=== PATIENT | female | born 1960 | race Hispanic/Latino ===

== ENCOUNTER 2019-07-30 21:25 | Inpatient (IN) | payer BC ==
[~2019-07-30] VITALS: Ht 149.9 cm; Wt 74.8 kg
--- OUTSIDE RECORDS SUMMARY | 2019-07-30 21:29 | XMS REPORT | Summary of Care ---
Author Author [facility] Organization [facility] Address Unknown Phone Unavailable Encounter CAROLINA Rowe(RAVIN) [id number] Date(s): 04/26/17 - 04/26/17 [facility] [address] [place] [address]- Attending Physician: Kavita Gilmore MD Referring Physician: Kavita Gilmore MD Vital Signs No data available for this section Problem List Condition Effective Dates Status Health Status Informan t Body mass index 30+ 02/28/14 Active - obesity1 Hyperlipidemia(Confi Active rmed) Multiple joint 04/21/13 Active pain(Confirmed)2 Osteopenia(Confirmed Active ) Prediabetes(Confirme Active d) Sleep Active apnea(Confirmed) Subjective visual 04/21/13 - 12/13/16 Resolved disturbance3 Urinary 04/21/13 Active incontinence(Confirm ed)4 Vitamin D 02/28/14 Active deficiency5, 6, 7 1Data migrated from [employer] on 07/16/14. 2Data migrated from [employer] on 07/16/14. 3Data migrated from [employer] on 07/16/14. 4Data migrated from [employer] on 07/16/14. 5Data migrated from [employer] on 08/24/14. 6Data migrated from [employer] on 07/19/14. 7Data migrated from [employer] on 07/16/14. Allergies, Adverse Reactions, Alerts Substance Reaction Severity Status NKDA Active Medications No data available for this section Results No data available for this section Immunizations Given and Recorded Vaccine Date Status Refusal Reason influenza virus vaccine, inactivated1 10/29/16 Given influenza virus vaccine, inactivated 11/14/14 G iven influenza virus vaccine, inactivated2 12/25/12 Given Hx influenza vaccine-unspecified3 12/20/11 Give n 1Result Comment: Patient waited in room for 10 mins no side effect. 2Result Comment: fluzone (>3 yrs.) [[id number]]. Migrated from OBS ; Data migrated from [employer] on 03/21/2015. 3Result Comment: historical. Migrated from OBS ; Data migrated from [employer] on 03/21/2015. Procedures Procedure Date Related Diagnosis Body Site Status Bone density scan1 03/27/16 Completed Mammogram 03/27/16 Completed Cardiovascular stress test using treadmill2 01/2015 Completed Echocardiography3 01/09/15 Completed Colonoscopy4 01/2012 Completed Endoscopy5 01/2012 Completed section6 Completed 1Previous dexa: Normal to new dexa: osteopenia left femoral neck 2Per patient it was normal. Dr Mireles 3Dr . Lindsay mild concentricular hypertrophy 4Next 5 years 5Gastritis 6x2 Social History Social History Type Response Alcohol Current, Type Beer. Freque ncy: 1-2 times per month. Smoking Status Current some day smoker; Li ves with someone who smokes; Cigarette Smoking Last 365 Days Yes; Reg Smoking Cessatio n Counseling No entered on: 07/29/17 Assessment and Plan No data available for this section
--- OUTSIDE RECORDS SUMMARY | 2019-07-30 21:29 | XMS REPORT | Summary of Care ---
Author Author [facility] Organization [facility] Address Unknown Phone Unavailable Encounter HQ Kristinr_sha(FIN) [id number] Date(s): 02/28/17 - 02/28/17 [facility] [address], [address] [place] [address]- [phone] Attending Physician: Kavita Gilmore MD Vital Signs No data available for this section Problem List Condition Effective Dates Status Health Status Informan t Body mass index 30+ 02/28/14 Active - obesity1 Hyperlipidemia(Confi Active rmed) Multiple joint pain2 04/21/13 Active Osteopenia(Confirmed Active ) Prediabetes(Confirme Active d) Sleep [...] side effect. 2Result Comment: fluzone (>3 yrs.) [[id number]]. Migrated from OBS ; Data migrated from [employer] on 03/21/2015. 3Result Comment: historical. Migrated from OBS ; Data migrated from [employer] on 03/21/2015. Procedures Procedure Date Related Diagnosis [...] Smoking Cessatio n Counseling No entered on: 12/13/16 Assessment and Plan No data available for this section
--- OUTSIDE RECORDS SUMMARY | 2019-07-30 21:29 | XMS REPORT | Summary of Care ---
Author Author [facility] Organization [facility] Address Unknown Phone Unavailable Encounter CAROLINA Rowe(RAVIN) [id number] Date(s): 04/07/18 - 04/07/18 [facility] [address] [place] [address]- Encounter Diagnosis Encounter for screening mammogram for malignant neoplasm of breast (Final) - Discharge Disposition: Home or Self Care Attending Physician: Kavita Gilmore MD Referring Physician: Kavita Gilmore MD Vital Signs No data available for this section Problem List Condition Effective Dates Status Health Status Informan t Body mass index 30+ 02/28/14 Active - obesity1 Low vitamin D Active level(Confirmed) Mixed Active hyperlipidemia(Confi rmed) Multiple joint 04/21/13 Active pain(Confirmed)2 Osteopenia(Confirmed Active ) Prediabetes(Confirme Active d) Sleep Active apnea(Confirmed) Subjective visual 04/21/13 - 12/13/16 Resolved disturbance3 Urinary 04/21/13 Active incontinence(Confirm ed)4 1Data migrated from [employer] on 07/16/14. 2Data migrated from [employer] on 07/16/14. 3Data migrated from [employer] on 07/16/14. 4Data migrated from [employer] on 07/16/14. Allergies, Adverse Reactions, Alerts Substance Reaction Severity Status NKDA Active Medications No data available for this section Results No data available for this section Immunizations Given and Recorded Vaccine Date Status Refusal Reason diphtheria/pertussis, acel/tetanus adult1 12/01/17 Given influenza virus vaccine, inactivated2 12/01/17 Given influenza virus vaccine, inactivated3 10/29/16 Given influenza virus vaccine, inactivated 11/14/14 G iven influenza virus vaccine, inactivated4 12/25/12 Given Hx influenza vaccine-unspecified5 12/20/11 Give n 1Result Comment: Patient waited in room ten mins no allergic reaction. 2Result Comment: Patient waited in room ten mins no allergic reaction. 3Result Comment: Patient waited in room for 10 mins no side effect. 4Result Comment: fluzone (>3 yrs.) [[id number]]. Migrated from OBS ; Data migrated from [employer] on 03/21/2015. 5Result Comment: historical. Migrated from OBS ; Data migrated from [employer] on 03/21/2015. Procedures Procedure Date Related Diagnosis Body Site Status Mammogram1 04/07/18 Completed Bone density scan2 03/27/16 Completed Cardiovascular stress test using treadmill3 01/2015 Completed Echocardiography4 01/09/15 Completed Colonoscopy5 01/2012 Completed Endoscopy6 01/2012 Completed section7 Completed 1:There is no mammographic evidence of malignancy. A 1 year screening mammogram is recommended.(04/08/2019) 2Previous dexa: Normal to new dexa: osteopenia left femoral neck 3Per patient it was normal. Dr Mireles 4Dr . Lindsay mild concentricular hypertrophy 5Next 5 years 6Gastritis 7x2 Social History Social History Type Response Alcohol Current, Type Beer. Freque ncy: 1-2 times per month. Smoking Status Current some day smoker; Li ves with someone who smokes; Cigarette Smoking Last 365 Days Yes; Reg Smoking Cessatio n Counseling No entered on: 04/08/18 Assessment and Plan No data available for this section
--- OUTSIDE RECORDS SUMMARY | 2019-07-30 21:29 | XMS REPORT | Summary of Care ---
Author Author [facility] Organization [facility] Address Unknown Phone Unavailable Encounter HQ Jae(FIN) [id number] Date(s): 05/13/19 - 05/14/19 [facility] [address] [place] [address]- [phone] Vital Signs No data available for this section Problem List Condition Effective Dates Status Health Status Informan t Body mass index 30+ 02/28/14 Active - obesity(Confirmed)1 Low vitamin D Active level(Confirmed) Mixed Active [...] [employer] on 07/16/14. Allergies, Adverse Reactions, Alerts No Known Medication Allergies Medications No data available for this section [...] side effect. 4Result Comment: fluzone (>3 yrs.) [[id number]]. Migrated from OBS ; Data migrated from [email or web address] on 03/21/2015. 5Result Comment: historical. Migrated from OBS ; Data migrated from [email or web address] on 03/21/2015. Procedures Procedure Date Related Diagnosis [...] Smoking Cessatio n Counseling No entered on: 08/05/18 Assessment and Plan No data available for this section
--- OUTSIDE RECORDS SUMMARY | 2019-07-30 21:29 | XMS REPORT | Summary of Care ---
Author Author [facility] Organization [facility] Address Unknown Phone Unavailable Encounter HQ Kristinr_sha(FIN) [id number] Date(s): 04/09/17 - 04/10/17 [facility] [address], [address] [place] [address]- [phone] Vital Signs No data available for this [...] Substance Reaction Severity Status NKDA Active Medications acetic acid otic 2% solution 5 drp, BOTH EARS, TID, X 7 day, # 15 ml, 0 Refill(s), Pharmacy: [id number] Start Date: 04/09/17 Stop Date: 04/16/17 Status: Completed nitrofurantoin macrocrystals 100 mg oral capsule (Macrodantin) 100 mg = 1 cap, PO, QID, X 7 day, # 28 cap, 0 Refill(s), Pharmacy: [id number] Start Date: 04/10/17 Stop Date: 04/17/17 Status: Completed Results No data available for this section Immunizations Given and Recorded Vaccine Date Status Refusal Reason influenza virus vaccine, inactivated1 10/29/16 Given influenza virus vaccine, inactivated 11/14/14 G iven influenza virus vaccine, inactivated2 12/25/12 Given Hx influenza vaccine-unspecified3 12/20/11 Give n 1Result Comment: Patient waited in room for 10 mins no side effect. 2Result Comment: fluzone (>3 yrs.) [[id number]]. Migrated from OBS ; Data migrated from [email or web address] on 03/21/2015. 3Result Comment: historical. Migrated from OBS ; Data migrated from [email or web address] on 03/21/2015. Procedures Procedure Date Related Diagnosis [...] Smoking Cessatio n Counseling No entered on: 03/31/17 Assessment and Plan No data available for this section
--- OUTSIDE RECORDS SUMMARY | 2019-07-30 21:29 | XMS REPORT | Summary of Care ---
Author Author [facility] Organization [facility] Address Unknown Phone Unavailable Encounter HQ Jae(RAVIN) [id number] Date(s): 07/29/17 - 07/29/17 [facility] [address], [address] [place] [address]- [phone] Discharge Disposition: Home or Self Care Attending Physician: Kavita Gilmore MD Vital Signs Most recent to 1 oldest [Reference Range]: Height 149.86 cm (07/29/17 9:34 AM) Temperature Oral 98.7 DegF [96.4-99.1 DegF] (07/29/17 9:34 AM) Blood Pressure 118/86 mmHg [90-140/60-90 mmHg] (07/29/17 9:34 AM) Respiratory Rate 16 BRMIN [14-20 BRMIN] (07/29/17 9:34 AM) Peripheral Pulse 76 bpm Rate [60-100 bpm] (07/29/17 9:34 AM) Weight 68.636 kg (07/29/17 9:34 AM) Body Mass Index 30.56 m2 (07/29/17 9:34 AM) Problem List Condition Effective Dates Status Health [...] Substance Reaction Severity Status NKDA Active Medications atorvastatin 10 mg oral tablet 10 mg = 1 tab, PO, Bedtime, # 90 tab, 1 Refill(s), Pharmacy: [id number] Start Date: 07/30/17 Status: Ordered Results No data available for this section Immunizations Given and Recorded Vaccine Date Status Refusal Reason influenza virus vaccine, inactivated1 10/29/16 Given influenza virus vaccine, inactivated 11/14/14 G iven influenza virus vaccine, inactivated2 12/25/12 Given Hx influenza vaccine-unspecified3 12/20/11 Give n 1Result Comment: Patient waited in room for 10 mins no side effect. 2Result Comment: fluzone (>3 yrs.) [[id number]]. Migrated from OBS ; Data migrated from [employer] on 03/21/2015. 3Result Comment: historical. Migrated from OBS ; Data migrated from [employer] on 03/21/2015. Procedures Procedure Date Related Diagnosis [...]
--- OUTSIDE RECORDS SUMMARY | 2019-07-30 21:29 | XMS REPORT | Summary of Care ---
Author Author [facility] Organization [facility] Address Unknown Phone Unavailable Encounter HQ Jae(FIN) [id number] Date(s): 03/24/18 - 03/24/18 [facility] [address], [address] [place] [address]- [phone] Discharge Disposition: Home or Self Care Attending Physician: Kavita Gilmore MD Vital Signs Most recent to 1 oldest [Reference Range]: Height 152.4 cm (03/24/18 9:28 AM) Temperature Oral 97.6 DegF [96.4-99.1 DegF] (03/24/18 9:28 AM) Blood Pressure 138/80 mmHg [90-140/60-90 mmHg] (03/24/18 9:28 AM) Respiratory Rate 16 BRMIN [14-20 BRMIN] (03/24/18 9:28 AM) Peripheral Pulse 71 bpm Rate [60-100 bpm] (03/24/18 9:28 AM) Weight 70.682 kg (03/24/18 9:28 AM) Body Mass Index 30.43 m2 (03/24/18 9:28 AM) Problem List Condition Effective Dates Status [...] Substance Reaction Severity Status NKDA Active Medications ciprofloxacin 500 mg oral tablet 500 mg = 1 tab, PO, Q12H, X 7 day, # 14 tab, 0 Refill(s), Pharmacy: [id number] Start Date: 03/24/18 Stop Date: 03/31/18 Status: Ordered Results No data available for [...] side effect. 4Result Comment: fluzone (>3 yrs.) [[id number]]. Migrated from OBS ; Data migrated from [employer] on 03/21/2015. 5Result Comment: historical. Migrated from OBS ; Data migrated from [employer] on 03/21/2015. Procedures Procedure Date Related Diagnosis [...] Smoking Cessatio n Counseling No entered on: 03/24/18 Assessment and Plan No data available for this section
--- OUTSIDE RECORDS SUMMARY | 2019-07-30 21:29 | XMS REPORT | Continuity of Care Document ---
Author Author [facility] Organization [facility] Address Unknown Phone Unavailable Care Team Providers Care Party Director Name Role Phone Goodmail Systems Information JoKno Unavailable Un available Problems Problem Status Onset Date Classification Date Reported Comments Source MAMMO SCREENING MAGNUS Active 03/30/2018 [facility] SCREENING MAMMO Active 04/03/2017 [facility] DX: Z12.39=ENCOUNTER FOR OTHER SCREENING Active 02/21/2016 [facility] FIRST NIGHT-[id number] Active 04/26/2015 [facility] Discharge Diagnosis: Calculus of kidney with calculus of ureter 11/29/2014 12/03/2014 [facility] FLANK PAIN /OTHER Active 11/29/2014 [facility] E78.0 Active 11/23/2014 [facility] SCREENING Active 09/16/2014 [facility] Body mass index 30+ - obesity (finding) Active 02/28/2014 Problem 05/26/2019 Data migrated from [employer] on 07/16/14. [facility] Vitamin D deficiency (disorder) Active 02/28/2014 Problem 08/02/2017 Data migrated from [employer] on . Data migrated from [employer] on 07/19/14. Data migrated from [employer] on 07/16/14. [facility] Neck pain (finding) Resolved 02/08/2014 Problem 03/30/2016 Data migrated from [employer] on 07/16. [facility] Influenza (disorder) Resolved 01/06/2014 Problem 03/30/2016 Data migrated from [employer] on 09/03. [facility] Viral disease (disorder) Resol ree 01/06/2014 Problem 03/30/2016 Data migrated from [employer] on 09/03. [facility] Urinary tract infectious disease (disorder) Resolved 11/01/2013 Problem 03/30/2016 Data migrated from [employer] on 09/03/14. [facility] Otalgia (disorder) Resolved 08/12/2013 Problem 03/30/2016 Data migrated from [employer] on 09/03. Data migrated from [employer] on 08/24/14. Data migrated from [employer] on 07/19/14. [facility] Otitis externa (disorder) Reso lved 07/14/2013 Problem 03/30/2016 Data migrated from [employer] on 09/03. Data migrated from [employer] on 09/03/14. [facility] PSOTMENOPOSAL Active 04/22/2013 [facility] Multiple joint pain (finding) Active 04/21/2013 Problem 05/26/2019 Data migrated from [employer] on 07/16. [facility] Subjective visual disturbance (disorder) Resolved 04/21/2013 Problem 05/26/2019 Data migrated from [employer] on 07/16/14. [facility] Urinary incontinence (finding) Active 04/21/2013 Problem 05/26/2019 Data migrated from [employer] on 07/16. [facility] Acute bronchitis (disorder) Re solved 01/08/2013 Problem 03/30/2016 Data migrated from [employer] on 09/03. [facility] Hypercholesterolemia (disorder) Active 12/25/2012 Problem 03/30/2016 Data migrated from [employer] on . Data migrated from [employer] on 07/19/14. [facility] Impaired fasting glycaemia (disorder) Resolved 12/25/2012 Problem 03/30/2016 Data migrated from [employer] on 08/24/14. Data migrated from [employer] on 07/16/14. [facility] Impaired glucose tolerance (disorder) Active 12/25/2012 Problem 03/30/2016 Data migrated from [employer] on . [facility] Upper respiratory infection (disorder) Resolved 12/25/2012 Problem 03/30/2016 Data migrated from [employer] on 09/03/14. [facility] Osteopenia (disorder) Active Problem 05/26/2019 [facility] Prediabetes (finding) Active Problem 05/26/2019 [facility] Sleep apnea (finding) Active Problem 05/26/2019 [facility] Decreased vitamin D (finding) Active Problem 09/2019 [facility] Mixed hyperlipidemia (disorder) Active Problem 09/2019 [facility] Hyperlipidemia (disorder) Acti ve Problem [facility] Benign hypertension (disorder) Active Problem 12/2016 [facility] Bronchitis (disorder) Active Problem 03/30/2016 [facility] Encounter for screening mammogram for ma lignant neoplasm of breast 04/09/2018 [facility] Family tension (finding) Active Problem 05/26/2019 [facility] XRAY Active [facility] Medications Medication Details Route Status Patient Instructions Ordering Provider Order Date Source Clotrimazole 10 MG/ML Topical Cream 1 appl, TOP, BID, apply to affected area for 2 to 4 weeks, X 7 day, # 15 gm, 1 Refill(s), Pharmacy: [facility] Active 05/24/2019 [facility] benzonatate 100 MG Oral Capsule [Tessalon Perles] 100 mg = 1 cap, PO, Q12H, X 14 day, # 28 cap, 0 Refill(s), Pharmacy: [facility] Active 05/24/2019 [facility] atorvastatin 20 mg oral tablet = 1 tab, PO, Bedtime, # 90 tab, 1 Refill(s), Pharmacy: [facility] Active 05/24/2019 [facility] atorvastatin 20 mg oral tablet = 1 tab, PO, Bedtime, # 90 tab, Refill(s) 1, Pharmacy: [facility] Active 08/30/2018 [facility] benzonatate 100 MG Oral Capsule [Tessalon Perles] 100 mg = 1 cap, PO, BID, X 14 day, # 28 cap, 0 Refill(s), Pharmacy: [facility] Active 08/25/2018 [facility] Betamethasone 0.5 MG/ML / Clotrimazole 1 0 MG/ML Topical Cream 1 appl, TOP, BID, X 14 day, # 45 gm, 1 R efill(s), Pharmacy: [facility] Active 08/25/2018 [facility] levocetirizine dihydrochloride 5 MG Oral Tablet [Xyzal ] 5 mg = 1 tab, PO, QPM, # 30 tab, 0 Refill(s), Pharmacy: [facility] Active 08/05/2018 [facility] ciprofloxacin 500 mg oral tablet 500 mg = 1 tab, PO, Q12H, X 7 day, # 14 tab, 0 Refill(s), Pharmacy: [facility] No Longer Active 03/24/2018 [facility] cefdinir 300 MG Oral Capsule 3 00 mg = 1 cap, PO, Q12H, X 5 day, # 10 cap, 0 Refill(s), Pharmacy: [facility] No Longer Active 01/09/2018 [facility] atorvastatin 10 mg oral tablet 10 mg = 1 tab, PO, Bedtime, # 90 tab, 1 Refill(s), Pharmacy: [facility] No Longer Active 12/02/2017 [facility] atorvastatin 10 mg oral tablet 10 mg = 1 tab, PO, Bedtime, # 90 tab, 1 Refill(s), Pharmacy: [facility] Active 07/31/2017 [facility] nitrofurantoin macrocrystals 100 mg oral capsule (Macrodantin) 100 mg = 1 cap, PO, QID, X 7 day, # 28 c ap, 0 Refill(s), Pharmacy: [facility] No Longe r Active 04/11/2017 [facility] Acetic Acid 20 MG/ML Otic Solution 5 drp, BOTH EARS, TID, X 7 day, # 15 ml, 0 Refill(s), Pharmacy: [facility] No Longer Active 04/10/2017 [facility] Sulfamethoxazole 800 MG / Trimethoprim 1 60 MG Oral Tablet [Bactrim] 1 tab, PO, BID, X 5 day, # 10 tab, 0 Ref ill(s), Pharmacy: [facility] No Longer Active 04/08/2017 [facility] Ondansetron 4 MG Disintegrating Tablet [Zofran] Special Instructions: Dissolve tab under tongue Active 11/30/2014 [facility] Tamsulosin hydrochloride 0.4 MG Oral Capsule [Flomax] 0.4 mg = 1 cap, PO, Daily, # 7 cap, 0 Refill(s) Active 11/30/2014 [facility] Morphine 4 mg, Route: IVP, ONC E, Dosing Weight 69.545, kg, Start date: 11/29/14 23:12:00, Stop date: 11/29/14 23:12:00 Inactive 11/30/2014 [facility] ketOROLAC 30 mg/mL injectable solution 30 mg, Route: IV, ONCE, Dosing Weight 69.545, kg, Start date: 11/29/14 23:04:00, Stop date: 11/29/14 23:04:00 Inactive 11/30/2014 [facility] Sodium Chloride 0.154 MEQ/ML Injectable Solution 1,000 mL, 1,000 ml/hr, Infuse Over: 1 hr, Route: IV, ONCE, Priority: STAT, Dosing Weight 69.545 kg, Start date: 11/29/14 20:06:00, Duration: 1 doses or times, Stop date: 11/29/14 20:06:00 Inactive 11/30/2014 [facility] Zofran 4 mg, Route: IVP, Drug form: INJ, ONCE, Dosing Weight 69.545, kg, Priority: STAT, Start date: 11/29/14 20:05:00, Stop date: 11/29/14 20:05:00 Inactive 11/30/2014 [facility] Dilaudid 1 mg, Route: IV, ONCE , Dosing Weight 69.545, kg, Start date: 11/29/14 20:05:00, Stop date: 11/29/14 20:05:00 Inactive 11/30/2014 [facility] Allergies, Adverse Reactions, Alerts Substance Category Reaction Severity Reaction type Status Date Reported Comments Source No Known Medication Allergies Assertion Drug aller gy [facility] Immunizations Immunization Date Given Site Status Last Updated Comments Source diphtheria/pertussis, acel/tetanus adult<sup>1</sup> 12/01/2017 Right Deltoid completed [facility] Result Comment: Patient waited in room ten mins no allergic reaction. [facility] influenza virus vaccine, inactivated<sup>2</sup> 12/01/2017 Left Deltoid completed [facility] Result Comment: Patient waited in room ten mins no allergic reaction. [facility] influenza virus vaccine, inactivated<sup>3</sup> 10/29/2016 Left Deltoid completed [facility] Result Comment: Patient waited in room for 10 mins no side effect. [facility] influenza virus vaccine, inactivated<sup>1</sup> 10/29/2016 Left Deltoid completed [facility] Result Comment: Patient waited in room for 10 mins no side effect. [facility] influenza virus vaccine, inactivated 11/14/2014 Left Deltoid completed [facility] influenza virus vaccine, inactivated<sup>4</sup> 12/25/2012 Left Deltoid completed [facility] Result Comment: fluzone (>3 yrs.) [[id number]]. Migrated from OBS ; Data migrated from [employer] on 03/21/2015. [facility] influenza virus vaccine, inactivated<sup>2</sup> 12/25/2012 Left Deltoid completed [facility] Result Comment: fluzone (>3 yrs.) [[id number]]. Migrated from OBS ; Data migrated from [employer] on 03/21/2015. [facility] Hx influenza vaccine-unspecified<sup>5</sup> 12/20/2011 completed [facility] Result Comment: historical. Migrated from OBS ; Data migrated from [employer] on 03/21/2015. [facility] Hx influenza vaccine-unspecified<sup>3</sup> 12/20/2011 completed [facility] Result Comment: historical. Migrated from OBS ; Data migrated from [employer] on 03/21/2015. [facility] Hx influenza vaccine-unspecified<sup>1</sup> 12/20/2011 completed GE Result Comment: historical. Migrated from OBS ; Data migrated from [employer] on 03/21/2015. [facility] Results Order Name Results Value Reference Range Date Interpretation Comments Source URINE AND STOOL UA Urobilinogen <=1.0 mg/dL 0.1 - 1.0 11/30/2014 [facility] URINE AND STOOL UA Bacteria Occasional /HPF None Seen /HPF 11/30/2014 [facility] URINE AND STOOL UA Mucus Few /LPF None Seen /LPF 11/30/2014 [facility] URINE AND STOOL UA WBC 3 0 - 5 11/30/2014 [facility] URINE AND STOOL UA Leuk Est Negative (11/29/14 8:18 PM) Negative 11/30/2014 [facility] URINE AND STOOL UA Sq Epi Few /LPF Few /LPF 11/30/2014 [facility] URINE AND STOOL UA Nitrite Negative (11/29/14 8:18 PM) Negative 11/30/2014 [facility] URINE AND STOOL UA RBC >182 0 - 2 11/30/2014 [facility] URINE AND STOOL UA Blood Large *ABN* (10/13/15 8:18 PM) Negative 11/30/2014 [facility] URINE AND STOOL UA Glucose Negative mg/dL Negative mg/dL 11/30/[address] [facility] [address] URINE AND STOOL UA Ketones Negative mg/dL Negative mg/dL 11/30/[address] [facility] [address] URINE AND STOOL UA Protein Negative mg/dL Negative mg/dL 11/30/[address] [facility] [address] URINE AND STOOL UA Bili Negative *NA* (11/29/14 8:18 PM) Negative 11/30/2014 [facility] URINE AND STOOL UA pH 5.0 5.0 - 8.0 11/30/2014 [facility] URINE AND STOOL UA Color Yellow *NA* (11/29/14 8:18 PM) Yellow 11/30/2014 [facility] URINE AND STOOL UA Turbidity Marked *ABN* (11/29/14 8:18 PM) Clear 11/30/2014 [facility] URINE AND STOOL UA Spec Grav 1.023 <=1.030 11/30/2014 [facility] CHEM PANEL eGFR 57 11/30/2014 Result Comment: The eGFR is calculated using the CKD-EPI formula. In most young, healthy individuals the eGFR will be >90 mL/min/1.73m2. The eGFR declines with age. An eGFR of 60-89 may be normal in some populations, particularly the elderly, for whom the CKD-EPI formula has not been extensively validated. Use of the eGFR is not recommended in the following populations:

Individuals with unstable creatinine concentrations, including patients and those with serious co-morbid conditions.

Patients with extremes in muscle mass or diet.

The data above are obtained from the National Kidney Disease Education Program (NKDEP) which additionally recommends that when the eGFR is used in patients with extremes of body mass index for purposes of drug dosing, the eGFR should be multiplied by the estimated BMI. [facility] CHEM PANEL Creatinine Lvl 1.1 0.5 - 1.4 11/30/2014 [facility] CHEM PANEL BUN 20 7 - 22 11/30/2014 [facility] CHEM PANEL CO2 22 24 - 32 11/30/2014 [facility] CHEM PANEL Total Protein 8.3 6.4 - 8.4 11/30/2014 [facility] CHEM PANEL AST 18 0 - 37 11/30/2014 [facility] CHEM PANEL ALT 45 0 - 65 11/30/2014 [facility] CHEM PANEL Bili Total 0.1 0.2 - 1.3 11/30/2014 [facility] CHEM PANEL Albumin Lvl 3.9 3.5 - 5.0 11/30/2014 [facility] CHEM PANEL Alk Phos 113 39 - 136 11/30/2014 [facility] CHEM PANEL Glucose Lvl 139 70 - 99 11/30/2014 [facility] CHEM PANEL Potassium Lvl 3.8 3.5 - 5.1 11/30/2014 [facility] CHEM PANEL Chloride Lvl 106 95 - 109 11/30/2014 [facility] CHEM PANEL Sodium Lvl 138 135 - 145 11/30/2014 [facility] CHEM PANEL Calcium Lvl 9.0 8.5 - 10.5 11/30/2014 [facility] CHEM PANEL A/G Ratio 0.9 0.7 - 1.6 11/30/2014 [facility] CHEM PANEL B/C Ratio 18 6 - 25 11/30/2014 [facility] CHEM PANEL Globulin 4.4 2.0 - 4.0 11/30/2014 [facility] CHEM PANEL AGAP 13.8 10.0 - 20.0 11/30/2014 [facility] CHEM PANEL Lipase Lvl 111 73 - 393 11/30/2014 [facility] HEMATOLOGY PTT 29.7 22.9 - 35.8 11/30/2014 [facility] HEMATOLOGY Hgb 13.1 12.0 - 16.0 11/30/2014 [facility] HEMATOLOGY RBC 4.53 4.20 - 5.40 11/30/2014 [facility] HEMATOLOGY Hct 41.3 36.0 - 48.0 11/30/2014 [facility] HEMATOLOGY WBC 17.2 3.7 - 10.4 11/30/2014 [facility] HEMATOLOGY MCV 91.3 80.0 - 98.0 11/30/2014 [facility] HEMATOLOGY MPV 10.0 7.4 - 10.4 11/30/2014 [facility] HEMATOLOGY MCH 29.0 27.0 - 31.0 11/30/2014 [facility] HEMATOLOGY Platelet 296 133 - 450 11/30/2014 [facility] HEMATOLOGY RDW 13.6 11.5 - 14.5 11/30/2014 [facility] HEMATOLOGY MCHC 31.8 32.0 - 36.0 11/30/2014 [facility] HEMATOLOGY PT 12.9 12.0 - 14.7 11/30/2014 [facility] HEMATOLOGY INR 0.94 0.85 - 1.17 11/30/2014 [facility] HEMATOLOGY Lymphocytes 8.6 20.0 - 40.0 11/30/2014 [facility] HEMATOLOGY Segs 86.4 45.0 - 75.0 11/30/2014 [facility] HEMATOLOGY Monocytes 4.5 2.0 - 12.0 11/30/2014 [facility] HEMATOLOGY Basophils # 0.1 0.0 - 0.2 11/30/2014 [facility] HEMATOLOGY Eosinophils 0.1 0.0 - 4.0 11/30/2014 [facility] HEMATOLOGY Segs-Bands # 14.9 1.5 - 8.1 11/30/2014 [facility] HEMATOLOGY Basophils 0.4 0.0 - 1.0 11/30/2014 [facility] Monocytes # 0.8 0.0 - 0.8 11/30/2014 [facility] Lymphocytes # 1.5 1.0 - 5.5 11/30/2014 [facility] Pathology Reports No Data Provided for This Section Diagnostic Reports Report Value Date Source Breast Mammo Scrn MAGNUS incl CAD MA BILATERAL DIGITAL SCREENING MAMMOGRAM WITH CAD: 04/07/2018 CLINICAL: Routine screening Z12.31. Current study was evaluated with a Computer Aided Detection (CAD) system. COMPARISON:Comparison is made to exams dated: 03/27/2016 mammogram, 09/24/2014 mammogram, 05/07/2013 mammogram, 04/18/2008 mammogram, [facility]/2006 [facility], and 05/19/2004. TECHNIQUE: Mammographic views were obtained using digital acquisition. Virtual[employer] Version 1.3 was utilized for computer aided detection. FINDINGS: The tissue of both breasts is almost entirely fat. There are benign vascular calcifications in the left breast. There also are benign scattered calcifications in both breasts. No significant masses, calcifications, or other findings are seen in either breast. There has been no significant interval change. IMPRESSION: BENIGN RECOMMENDATION:There is no mammographic evidence of malignancy. A 1 year screening mammogram is recommended.(04/08/2019) This exam was interpreted at [id number] for [facility] [place]. Óscar liu/kari:04/07/2018 10:34:00 Agriscience Teacher(s): Malika Saunders, [facility] letter sent: BI-RADS 1/2 Mammogram BI-RADS: 2 Benign 04/07/2018 [facility] Digital Mammo Screening [facility] MA - DIGITAL MAMMO SCREENING MAGNUS MA BILATERAL DIGITAL SCREENING MAMMOGRAM WITH CAD: 03/27/2016 CLINICAL: Routine. Current study was evaluated with a Computer Aided Detection (CAD) system. Comparison is made to exams dated: 09/24/2014 mammogram, 05/07/2013 mammogram, 04/18/2008 mammogram, 05/05/2006 [facility] and 05/19/2004. The tissue of both breasts is almost entirely fat. There are benign scattered calcifications in both breasts. There also are benign vascular calcifications in the left breast. No significant masses, calcifications, or other findings are seen in either breast. There has been no significant interval change. IMPRESSION: BENIGN There is no mammographic evidence of malignancy. A 1 year screening mammogram is recommended. Óscar liu/penrad:03/27/2016 11:27:47 Agriscience Teacher: Chrissie Mcgregor, [facility] This exam was dictated and interpreted by [id number] for [facility] [place]. letter sent: Normal exam Mammogram BI-RADS: 2 Benign 03/27/2016 [facility] Bone Density Scan Patient Name : ADOLFO MARIANO : 1960; Age: 55 years y/o Female MR: [id number] Study: Bone Density Scan 03/27/2016 10:[address] TECHNICIAN Clinical Indication: osteoporosis. COMPARISON: 05/07/2013. FINDINGS: The axial lumbar bone mineral density is 114% of the expected age matched bone mass with a T-score 1.4. Axial lumbar average BMD is 1.20 g/cm2. This is decreased 2.5% when compared to the prior exam. The left femoral neck bone mineral density is 86% of the expected age matched bone mass with a T-score of -1.1. Left femoral neck BMD is 0.75 g/cm2. The total femoral BMD is 1.14 g/cm2. This is decreased 9% when compared to the prior exam. IMPRESSION: 1. Normal bone mineral density of the kyle mbar spine. 2. Osteopenia of the left femoral neck. The World Health Organization has established that OSTEOPOROSIS occurs at -2.5 or more standard deviations (SD) below peak bone mass. OSTEOPENIA (low bone mass) occurs at -1.0 standard deviations to -2.5 standard deviations below peak bone mass. SL: [id number] 03/27/2016 [facility] Abdomen/Pelvis wo IV contrast CT HISTORY: Acute right flank pain. CT abdomen and pelvis without contrast. Right hydronephrosis and hydroureter secondary to a 3 mm right UVJ calculus. Additional nonobstructive 2 mm at upper pole calculus and 2 mm left upper pole calculus. Visualized lung bases and pleural spaces are clear. Noncontrast upper abdominal viscera demonstrate no other acute finding. No bowel obstruction. No free air. No evidence for appendicitis or diverticulitis. No ascites or pathologic pelvic fluid. IMPRESSION: Right hydronephrosis secondary to 3 mm right UVJ calculus. SL:11/29/2014 [facility] Abdomen RUQ US HISTORY: Acute abdominal pain. Gallbladder normal. Liver: Normal. Common bile duct 5 mm, normal Pancreas not well-seen. Right kidney with hydronephrosis. No upper abdominal fluid collection otherwise. IMPRESSION: Right hydronephrosis. No acute right upper quadrant finding otherwise. SL:11/29/2014 [facility] Hip bilat w pelvis and both lat hips DX Pelvis one view and bilateral hips 2 views: There are no significant osseous, articular or soft tissue abnormalities. The SI joints are within normal limits. Mild spurring involving the anterior/superior iliac spines is noted. Mild degenerative changes in the lower lumbar spine are noted. IMPRESSION: No acute radiographic abnormalities of the pelvis or hips. SL:09/24/2014 [facility] Knee 3 Views Bilateral DX Bila teral knees 2 views: There are no significant osseous, articular or soft tissue abnormalities. IMPRESSION: No significant radiographic abnormalities of the knees. SL:09/24/2014 [facility] Hand 3 views Bilateral DX Bila teral hands 3 views: There is normal osseous density and alignment. There is no evidence of fractures or other acute osseous abnormalities. There is articular irregularity, sclerosis and hypertrophic change following the PIP joint of the right middle finger. The other joint spaces are normal in width without evidence of erosions or articular abnormalities. The soft tissues are unremarkable. IMPRESSION: Hypertrophic arthropathy in the right middle finger PIP joint which may be degenerative. There are no other significant articular abnormalities in the hands or wrists. SL:09/24/2014 [facility] Digital Mammo Screening [facility] MA - DIGITAL MAMMO SCREENING MAGNUS MA BILATERAL DIGITAL SCREENING MAMMOGRAM WITH CAD: 09/24/2014 CLINICAL: Routine. Current study was evaluated with a Computer Aided Detection (CAD) system. Comparison is made to exams dated: 05/07/2013 mammogram, 04/18/2008 mammogram, 05/05/2006 [facility] and 05/19/2004. The tissue of both breasts is almost entirely fat. There are benign scattered calcifications in both breasts. There also are benign vascular calcifications in the left breast. No significant masses, calcifications, or other findings are seen in either breast. There has been no significant interval change. IMPRESSION: BENIGN There is no mammographic evidence of malignancy. A 1 year screening mammogram is recommended. Óscar liu/kari:09/26/2014 08:09:38 Agriscience Teacher: Suad Wagoner, [facility] This exam was dictated and interpreted by [id number] for [facility] [place]. letter sent: Normal exam Mammogram BI-RADS: 2 Benign 09/24/2014 [facility] Spine cervical 2 or 3 view DX HISTORY: Neck pain. Cervical spine 2 views. No fracture subluxation or acute abnormality. Mild endplate degenerative changes, osteophytes at C4-C5 IMPRESSION: No acute findings. Mild C4-C5 degenerative changes. SL:13 02/08/2014 [facility] Bone Density Scan BONE DENSITY : TECHNIQUE: Dual energy x-ray absorptiometry (Hologic) was done over the lumbar spine and left hip. FINDINGS: The total T-score and BMD over the lumbar spine is 1.6 and 1.227 respectively, consistent with normal bone mineral density. No increased fracture risk. The total T-score and BMD over the left hip is 2.2 and 1.252 respectively, consistent with normal bone mineral density. No increased fracture risk. IMPRESSION: 1. Normal bone mineral density of the kyle mbar spine. 2. Normal bone mineral density of the le ft hip. FOR YOUR INFORMATION: The World Health Organization has established that OSTEOPOROSIS occurs at -2.5 or more standard deviations (SD) below peak bone mass (T-score on the Hologic report). OSTEOPENIA (low bone mass) occurs at -1.0 to -2.5 standard deviations below peak bone mass. SL: 12 05/07/2013 [facility] Digital Mammo Screening [facility] MA - DIGITAL MAMMO SCREENING MAGNUS MA BILATERAL DIGITAL SCREENING MAMMOGRAM WITH CAD: 05/07/2013 CLINICAL: Other Screening Mammogram. Current study was evaluated with a Computer Aided Detection (CAD) system. Comparison is made to exams dated: 04/18/2008 mammogram, [facility] [facility] and 05/19/2004. The tissue of both breasts is almost entirely fat. There are benign scattered calcifications in both breasts. There also are benign vascular calcifications in the left breast. No significant masses, calcifications, or other findings are seen in either breast. There has been no significant interval change. IMPRESSION: BENIGN There is no mammographic evidence of malignancy. A screening mammogram in one year is recommended. Óscar liu/penrad:05/10/2013 08:21:27 Agriscience Teacher: Malika [facility] This exam was dictated and interpreted by [id number] at [facility], 13. letter sent: Normal exam Mammogram BI-RADS: 2 Benign 05/07/2013 [facility] Consultation Notes No Data Provided for This Section Discharge Summaries No Data Provided for This Section History and Physicals No Data Provided for This Section Vital Signs Vital Sign Value Date Comments Source BMI Calculated 32.38 08/05/2018 [facility] Weight 72.727 08/05/2018 [facility] Height 149.86 cm 08/05/2018 [facility] Temperature Oral (F) 98.2 F 08/05/2018 [facility] Systolic (mm Hg) 128 08/05/2018 [facility] Diastolic (mm Hg) 85 08/05/2018 [facility] Heart Rate 84 08/05/2018 [facility] Respitory Rate 16 08/05/2018 [facility] Height 154.94 cm 04/08/2018 [facility] BMI Calculated 29.35 04/08/2018 [facility] Weight 70.455 04/08/2018 [facility] Temperature Oral (F) 97.9 F 04/08/2018 [facility] Respitory Rate 16 04/08/2018 [facility] Heart Rate 87 04/08/2018 [facility] Systolic (mm Hg) 129 04/08/2018 [facility] Diastolic (mm Hg) 81 04/08/2018 [facility] BMI Calculated 30.43 03/24/2018 [facility] Weight 70.682 03/24/2018 [facility] Height 152.4 cm 03/24/2018 [facility] Temperature Oral (F) 97.6 F 03/24/2018 [facility] Respitory Rate 16 03/24/2018 [facility] Heart Rate 71 03/24/2018 [facility] Systolic (mm Hg) 138 03/24/2018 [facility] Diastolic (mm Hg) 80 03/24/2018 [facility] Height 154.94 cm 01/09/2018 [facility] Temperature Oral (F) 97.9 F 01/09/2018 [facility] Respitory Rate 14 01/09/2018 [facility] Heart Rate 76 01/09/2018 [facility] Systolic (mm Hg) 129 01/09/2018 [facility] Diastolic (mm Hg) 68 01/09/2018 [facility] BMI Calculated 29.16 01/09/2018 [facility] Weight 70 1 03/11/2017 [facility] Height 157.48 cm 12/01/2017 [facility] BMI Calculated 28.04 12/01/2017 [facility] Weight 69.545 12/01/2017 [facility] Heart Rate 82 12/01/2017 [facility] Temperature Oral (F) 97.8 F 12/01/2017 [facility] Respitory Rate 16 12/01/2017 [facility] Systolic (mm Hg) 130 12/01/2017 [facility] Diastolic (mm Hg) 79 12/01/2017 [facility] Temperature Oral (F) 98.7 F 07/29/2017 [facility] Respitory Rate 16 07/29/2017 [facility] Heart Rate 76 07/29/2017 [facility] Systolic (mm Hg) 118 07/29/2017 [facility] Diastolic (mm Hg) 86 07/29/2017 [facility] Height 149.86 cm 07/29/2017 [facility] Weight 68.636 07/29/2017 [facility] BMI Calculated 30.56 07/29/2017 [facility] Weight 68.636 03/31/2017 [facility] BMI Calculated 30.56 03/31/2017 [facility] Systolic (mm Hg) 113 03/31/2017 [facility] Diastolic (mm Hg) 73 03/31/2017 [facility] Height 149.86 cm 03/31/2017 [facility] Temperature Oral (F) 97.6 F 03/31/2017 [facility] Respitory Rate 16 03/31/2017 [facility] Heart Rate 73 03/31/2017 [facility] Temperature Oral (F) 98 F 11/30/2014 [facility] Heart Rate 78 11/30/2014 [facility] Respitory Rate 18 11/30/2014 [facility] Systolic (mm Hg) 135 11/30/2014 [facility] Diastolic (mm Hg) 74 11/30/2014 [facility] BMI Calculated 30.97 11/29/2014 [facility] Weight 69.545 11/29/2014 [facility] Heart Rate 83 11/29/2014 [facility] Systolic (mm Hg) 151 11/29/2014 [facility] Diastolic (mm Hg) 79 11/29/2014 [facility] Height 149.86 cm 11/29/2014 [facility] Respitory Rate 18 11/29/2014 [facility] Temperature Oral (F) 98.3 F 11/29/2014 [facility] Encounters Location Location Details Encounter Type Encounter Number Reason For Visit Attending Provider ADM Date DC Date Status Source [facility] Outpatient [id number] Tono Lauren 05/07/2013 05/08/2013 [facility] Outpatient [id number] Penelope Lauren 09/24/2014 09/25/2014 [facility] Outpatient [id number] PENELOPE LAUREN 11/03/2014 Active [facility] Outpatient [id number] NURSE VISIT 11/14/2014 Active [facility] Outpatient [id number] PENELOPE LAUREN 11/21/2014 Active [facility] Outpatient [id number] PENELOPE LAUREN 11/28/2014 Active [facility] [id number] Romi Guzmanooqi 11/29/2014 11/30/2014 [facility] Outpatient [id number] PENELOPE LAUREN 03/24/2015 Active [facility] [place] Outpatient [id number] PENELOPE LAUREN 03/30/2015 [facility] [id number] PENELOPE LAUREN 04/06/2015 [facility] [place] [facility] [id number] ANNA PRO 05/29/2015 [facility] [place] [facility] [id number] PENELOPE LAUREN 06/26/2015 [facility] [place] Out[facility] [id number] PENELOPE LAUREN 08/07/2015 [facility] [place] Outpatient [id number] PENELOPE LAUREN 09/18/2015 [facility] [id number] PENELOPE LAUREN 11/06/2015 [facility] [id number] PENELOPE LAUREN 01/08/2016 [facility] [id number] PENELOPE LAUREN 01/08/2016 Active [facility] Outpatient [id number] PENELOPE LAUREN 01/29/2016 Active [facility] Outpatient [id number] Penelope Lauren 03/27/2016 03/28/2016 [facility]patient [id number] PENELOPE LAUREN 06/03/2016 Active [facility] Outpatient [id number] PENELOPE LAUREN 10/29/2016 Active [facility] Outpatient [id number] TIFFANIE BRADY 12/13/2016 Active [facility] Outpatient [id number] PENELOPE LAUREN 02/28/2017 Active [facility] Primary Care [facility] Ambulatory Pre-Reg [id number] Penelope Lauren 02/28/2017 02/28/2017 [facility] Outpatient [id number] PENELOPE LAUREN 03/31/2017 Active [facility] Primary Care [facility] Outpatient [id number] Penelope Lauren 03/31/2017 04/01/2017 [facility] Primary Care [facility] Phone Message [id number] 04/09/2017 04/11/2017 [facility] Outpatient [id number] Penelope Lauren 04/26/2017 04/26/2017 [facility] Outpatient [id number] PENELOPE LAUREN 07/29/2017 Active [facility] Primary Care [facility] Outpatient [id number] Penelope Lauren 07/29/2017 07/30/2017 [facility] Outpatient [id number] PENELOPE LAUREN 12/01/2017 Active [facility] Primary Care [facility] Outpatient [id number] Penelope Lauren 12/01/2017 12/02/2017 [facility] Outpatient [id number] CORNEL TERAN 01/09/2018 Active [facility] Primary Care [facility] Outpatient [id number] Cornel Teran 01/09/2018 01/10/2018 [facility] Outpatient [id number] PENELOPE LAUREN 03/24/2018 Active [facility] Primary Care [facility] Outpatient [id number] Penelope Lauren 03/24/2018 03/25/2018 [facility] Outpatient [id number] Penelope Lauren 04/07/2018 04/08/2018 [facility] Outpatient [id number] PENELOPE LAUREN 04/08/2018 Active [facility] Primary Care [facility] Outpatient [id number] Penelope Lauren 04/08/2018 04/09/2018 [facility] Outpatient [id number] Penelope Lauren 08/05/2018 Active [facility] Primary [facility] Outpatient [id number] Penelope Lauren 08/05/2018 08/06/2018 [facility] Group [facility] Primary [facility] Phone Message [id number] 08/25/2018 08/27/2018 [facility] Group [facility] Primary [facility] Between Visit [id number] 08/30/2018 08/31/2018 [facility] Internal Medicine [facility] Phone Message [id number] 05/11/2019 05/13/2019 [facility] Internal Medicine [facility] Phone Message [id number] 05/11/2019 05/13/2019 [facility] Internal Medicine [facility] Phone Message [id number] 05/13/2019 05/15/2019 [facility] Outpatient [id number] Penelope Deirdre 05/21/2019 Active [facility] Internal Medicine C Ambulatory Pre-Reg [id number] Penelope Deirdre 05/21/2019 05/21/2019 [facility] Outpatient [id number] Penelope Deirdre 05/24/2019 Active [facility] Internal Medicine [facility] Outpatient [id number] Penelope Deirdre 05/24/2019 05/25/2019 Medical [facility] Procedures Procedure Code Date Perfomer Comments Source Mammogram<sup>1</sup> [id number] 04/07/2018 :There is no mammographic evidence of malignancy. A 1 year screening mammogram is recommended.(04/08/2019) [facility] Bone density scan<sup>1</sup> [id number] 03/27/2016 Previous dexa: Normal to new dexa: osteopenia left femoral neck [facility] Mammogram [id number] 03/27/2016 [facility] Bone density scan<sup>2</sup> [id number] 03/27/2016 Previous dexa: Normal to new dexa: osteopenia left femoral neck [facility] Cardiovascular stress test using treadmill<sup>2</sup> [id number] 01/17/2015 Per patient it was normal. Dr Mireles [facility] Cardiovascular stress test using treadmill<sup>3</sup> [id number] 01/17/2015 Per patient it was normal. Dr Mireles [facility] Echocardiography<sup>3</sup> 4 [id number] 01/09/2015 Dr Fanta Montoya mild concentricular hypertrophy [facility] Echocardiography<sup>4</sup> 4 [id number] 01/09/2015 Dr Fanta Montoya mild concentricular hypertrophy [facility] Eye examination [id number] 12/18/2013 [facility] Colonoscopy<sup>4</sup> [id number] 01/18/2012 Next 5 years [facility] Endoscopy<sup>5</sup> [id number] 01/18/2012 Gastritis [facility] Colonoscopy<sup>2</sup> [id number] 01/18/2012 Next 5 years [facility] Endoscopy<sup>3</sup> [id number] 01/18/2012 Gastritis [facility] Colonoscopy<sup>5</sup> [id number] 01/18/2012 Next 5 years [facility] Endoscopy<sup>6</sup> [id number] 01/18/2012 Gastritis [facility] section<sup>6</sup> 1 [id number] x2 [facility] section<sup>4</sup> 1 [id number] x2 [facility] section<sup>7</sup> 1 4783213 x2 [facility] Assessment and Plan No Data Provided for This Section Plan of Care No Data Provided for This Section Social History Social History Date Source Social History TypeResponse Alcohol Current, Type Beer. Frequency: 1-2 times per month. Smoking Status Current some day smoker; Lives with someone who smokes; Cigarette Smoking Last 365 Days Yes; Reg Smoking Cessation Counseling No entered on: 08/05/18 11/03/2014 [facility] Social History TypeResponse Alcohol Current, Type Beer. Frequency: 1-2 times per month. Smoking Status Current some day smoker; Lives with someone who smokes; Cigarette Smoking Last 365 Days Yes; Reg Smoking Cessation Counseling No entered on: 04/08/18 11/03/2014 [facility] Family History No Data Provided for This Section Advance Directives No Data Provided for This Section Functional Status No Data Provided for This Section
--- OUTSIDE RECORDS SUMMARY | 2019-07-30 21:29 | XMS REPORT | Summary of Care ---
Author Author [facility] Organization [facility] Address Unknown Phone Unavailable Encounter HQ Jae(FIN) [id number] Date(s): 09/24/14 - 09/24/14 [facility] [address] [place] [address]- [phone] Discharge Disposition: Home Attending Physician: Kavita Gilmore MD Referring Physician: Kavita Gilmore MD Vital Signs No data available for this section Problem List Condition Effective Dates Status Health Status Informan t Acute bronchitis1 01/08/13 Resolved Body mass index 30+ 02/28/14 Active - obesity2 Hypercholesterolemia 12/25/12 Active 3, 4 Hyperlipidemia5, 6, 12/25/12 Resolved 7 Impaired fasting 12/25/12 Resolved glycaemia8, 9 Impaired glucose 12/25/12 Active lckflbrxa89 Wqialhmep22 01/06/14 Resolved Multiple joint 04/21/13 Active pain12 Neck pain13 02/08/14 Resolved Kxrjdbv24, 15, 16 08/12/13 Resolved Otitis ubrzxyb44, 18 07/14/13 Resolved Subjective visual 04/21/13 Resolved ombhtoaxkwb33 Upper respiratory 12/25/12 Resolved msqlnkxmo97 Urinary 04/21/13 Active saagoiiseclo23 Urinary tract 11/01/13 Resolved infectious udczics07 Viral hzjitpj61 01/06/14 Resolved Vitamin D 02/28/14 Active rmsikbwziv45, 25, 26 1Data migrated from [employer] on 09/03/14. 2Data migrated from [employer] on 07/16/14. 3Data migrated from [employer] on 08/24/14. 4Data migrated from [employer] on 07/19/14. 5Data migrated from [employer] on 08/24/14. 6Data migrated from [employer] on 07/19/14. 7Data migrated from [employer] on 07/16/14. 8Data migrated from [employer] on 08/24/14. 9Data migrated from [employer] on 07/16/14. 10Data migrated from [employer] on 08/24/14. 11Data migrated from [employer] on 09/03/14. 12Data migrated from [employer] on 07/16/14. 13Data migrated from [employer] on 07/16/14. 14Data migrated from [employer] on 09/03/14. 15Data migrated from [employer] on 08/24/14. 16Data migrated from [employer] on 07/19/14. 17Data migrated from [employer] on 09/03/14. 18Data migrated from [employer] on 09/03/14. 19Data migrated from [employer] on 07/16/14. 20Data migrated from [employer] on 09/03/14. 21Data migrated from [employer] on 07/16/14. 22Data migrated from [employer] on 09/03/14. 23Data migrated from [employer] on 09/03/14. 24Data migrated from [employer] on 08/24/14. 25Data migrated from [employer] on 07/19/14. 26Data migrated from [employer] on 07/16/14. Allergies, Adverse Reactions, Alerts Substance Reaction Severity Status NKDA Active Medications No data available for this section Results No data available for this section Immunizations No data available for this section Procedures Procedure Date Related Diagnosis Body Site Eye examination 12/2013 Bone density scan1 04/2013 Colonoscopy2 01/2012 Endoscopy3 01/2012 1Normal 2Next 5 years 3Gastritis Social History Social History Type Response Assessment and Plan No data available for this section
--- OUTSIDE RECORDS SUMMARY | 2019-07-30 21:29 | XMS REPORT | Summary of Care ---
Author Author [facility] Internal Medicine [facility] Organization [facility] Internal Medicine [facility] Address Unknown Phone Unavailable Encounter HQ Jae(FIN) [id number] Date(s): 05/11/19 - 05/12/19 [facility] Internal Medicine [facility] [address] [place] [address]- [phone] Vital Signs No data available for this [...] side effect. 4Result Comment: fluzone (>3 yrs.) [[id number]]. Migrated from OBS ; Data migrated from [employer] on 03/21/2015. 5Result Comment: historical. Migrated from OBS ; Data migrated from [employer] on 03/21/2015. Procedures Procedure Date Related Diagnosis [...]
--- OUTSIDE RECORDS SUMMARY | 2019-07-30 21:29 | XMS REPORT | Summary of Care ---
Author Author [facility] Organization [facility] Address Unknown Phone Unavailable Care Team Providers Care Digital Librarian Name Role Phone Kavita Gilmore Maria PCP Encounter HQ Jae(FIN) [id number] Date(s): 08/25/18 - 08/26/18 [facility] [address] [place] [address]- Vital Signs No data available for this [...] Reactions, Alerts No Known Medication Allergies Medications betamethasone-clotrimazole topical 0.05%-1% cream 1 appl, TOP, BID, X 14 day, # 45 gm, 1 Refill(s), Pharmacy: [id number] Start Date: 08/25/18 Stop Date: 09/22/18 Status: Ordered Tessalon Perles 100 mg oral capsule 100 mg = 1 cap, PO, BID, X 14 day, # 28 cap, 0 Refill(s), [facility]acy: [id number] Start Date: 08/25/18 Stop Date: 09/08/18 Status: Ordered Results No data available for [...] side effect. 4Result Comment: fluzone (>3 yrs.) [[id number]]. Migrated from OBS ; Data migrated from [employer] on 03/21/2015. 5Result Comment: historical. Migrated from OBS ; Data migrated from [employer] on 03/21/2015. Procedures Procedure Date Related Diagnosis [...]
--- OUTSIDE RECORDS SUMMARY | 2019-07-30 21:29 | XMS REPORT | Summary of Care ---
Author Author [facility] Primary Care [facility] Organization [facility] Address Unknown Phone Unavailable Care Team Providers Care Kiln Labourer Name Role Phone Kavita Gilmore PCP Encounter HQ Jae([facility]) [id number] Date(s): 12/01/17 - 12/01/17 [facility] [address] [place] [address]- Discharge Disposition: Home or Self Care Attending Physician: Kavita Gilmore MD Vital Signs Most recent to 1 oldest [Reference Range]: Height 157.48 cm (12/01/17 9:29 AM) Temperature Oral 97.8 DegF [96.4-99.1 DegF] (12/01/17 9:29 AM) Blood Pressure 130/79 mmHg [90-140/60-90 mmHg] (12/01/17 9:29 AM) Respiratory Rate 16 BRMIN [14-20 BRMIN] (12/01/17 9:29 AM) Peripheral Pulse 82 bpm Rate [60-100 bpm] (12/01/17 9:29 AM) Weight 69.545 kg (12/01/17 9:29 AM) Body Mass Index 28.04 m2 (12/01/17 9:29 AM) Problem List Condition Effective Dates Status [...] Reactions, Alerts No Known Medication Allergies Medications atorvastatin 10 mg oral tablet 10 mg = 1 tab, PO, Bedtime, # 90 tab, 1 Refill(s), Pharmacy: [phone] Start Date: 12/01/17 Stop Date: 01/23/18 Status: Completed Results No data available for [...] side effect. 4Result Comment: fluzone (>3 yrs.) [[id number]]. Migrated from OBS ; Data migrated from [employer] on 03/21/2015. 5Result Comment: historical. Migrated from [...]
--- OUTSIDE RECORDS SUMMARY | 2019-07-30 21:29 | XMS REPORT | Summary of Care ---
Author Author [facility] Internal Medicine [facility] Organization [facility] Internal Medicine [facility] Address Unknown Phone Unavailable Encounter HQ Jae(FIN) [id number] Date(s): 05/11/19 - 05/12/19 [facility] Internal Medicine [facility] [address] [place] [address]- [phone] Vital Signs No data available for this [...] side effect. 4Result Comment: fluzone (>3 yrs.) [[id number]]. Migrated from OBS ; Data migrated from [employer] on 03/21/2015. 5Result Comment: historical. Migrated from OBS ; Data migrated from [employer] on 03/21/2015. Procedures Procedure Date Related Diagnosis [...]
--- OUTSIDE RECORDS SUMMARY | 2019-07-30 21:29 | XMS REPORT | Summary of Care ---
Author Author [facility] Organization [facility] Address Unknown Phone Unavailable Encounter HQ Jae(FIN) [id number] Date(s): 03/31/17 - 03/31/17 [facility] [address], [address] [place] [address]- [phone] Discharge Disposition: Home or Self Care Attending Physician: Kavita Gilmore MD Vital Signs Most recent to 1 oldest [Reference Range]: Height 149.86 cm (03/31/17 11:13 AM) Temperature Oral 97.6 DegF [96.4-99.1 DegF] (03/31/17 11:13 AM) Blood Pressure 113/73 mmHg [90-140/60-90 mmHg] (03/31/17 11:13 AM) Respiratory Rate 16 BRMIN [14-20 BRMIN] (03/31/17 11:13 AM) Peripheral Pulse 73 bpm Rate [60-100 bpm] (03/31/17 11:13 AM) Weight 68.636 kg (03/31/17 11:13 AM) Body Mass Index 30.56 m2 (03/31/17 11:13 AM) Problem List Condition Effective Dates Status [...] Substance Reaction Severity Status NKDA Active Medications Bactrim DS 800 mg- 160 mg oral tablet 1 tab, PO, BID, X 5 day, # 10 tab, 0 Refill(s), Pharmacy: [id number] Start Date: 04/08/17 Stop Date: 04/13/17 Status: Completed Results No data available for this section Immunizations Given and Recorded Vaccine Date Status Refusal Reason influenza virus vaccine, inactivated1 10/29/16 Given influenza virus vaccine, inactivated 11/14/14 G iven influenza virus vaccine, inactivated2 12/25/12 Given Hx influenza vaccine-unspecified3 12/20/11 Give n 1Result Comment: Patient waited in room for 10 mins no side effect. 2Result Comment: fluzone (>3 yrs.) [[id number]]. Migrated from OBS ; Data migrated from [...]
--- OUTSIDE RECORDS SUMMARY | 2019-07-30 21:29 | XMS REPORT | Summary of Care ---
Author Author [facility] Organization [facility] Address Unknown Phone Unavailable Encounter HQ Kristinr_sha(FIN) [id number] Date(s): 01/09/18 - 01/09/18 [facility] [address] [place] [address]- Discharge Disposition: Home or Self Care Attending Physician: Cornel Ye MD Vital Signs Most recent to 1 oldest [Reference Range]: Height 154.94 cm (01/09/18 11:57 AM) Temperature Oral 97.9 DegF [96.4-99.1 DegF] (01/09/18 11:57 AM) Blood Pressure 129/68 mmHg [90-140/60-90 mmHg] (01/09/18 11:57 AM) Respiratory Rate 14 BRMIN [14-20 BRMIN] (01/09/18 11:57 AM) Peripheral Pulse 76 bpm Rate [60-100 bpm] (01/09/18 11:57 AM) Weight 70 kg (01/09/18 11:57 AM) Body Mass Index 29.16 m2 (01/09/18 11:57 AM) Problem List Condition Effective Dates Status [...] Reactions, Alerts No Known Medication Allergies Medications cefdinir 300 mg oral capsule 300 mg = 1 cap, PO, Q12H, X 5 day, # 10 cap, 0 Refill(s), [facility] [address] Start Date: 01/09/18 Stop Date: 01/14/18 Status: Completed Results No data available for [...] side effect. 4Result Comment: fluzone (>3 yrs.) [[id number]]. Migrated from OBS ; Data migrated from [employer] on 03/21/2015. 5Result Comment: historical. Migrated from OBS ; Data migrated from [employer] on 03/21/2015. Procedures Procedure Date Related Diagnosis [...]
--- OUTSIDE RECORDS SUMMARY | 2019-07-30 21:29 | XMS REPORT | Summary of Care ---
Author Organization Unknown Address Unknown Phone Unavailable Encounter Dates Location Diagnoses Discharge Providers Disposition 05/07/2013 [facility] 05/07/[address] Reason for Visit PSOTMENOPOSAL Problem List No data available for this section Allergies, Adverse Reactions, Alerts Status Substance Reaction Severity Active NKDA Medications No data available for this section Medications Administered During Your Visit No data available for this section Immunizations No data available for this section Social History Social History Type Response
--- OUTSIDE RECORDS SUMMARY | 2019-07-30 21:29 | XMS REPORT | Summary of Care ---
Author Author [facility] Organization [facility] Address Unknown Phone Unavailable Care Team Providers Care Header Machine Operator Name Role Phone Kavita Gilmore Maria PCP Encounter HQ Jae(FIN) [id number] Date(s): 08/30/18 - 08/31/18 [facility] [address] [place] [address] [phone] Vital Signs No data available for this [...] Alerts No Known Medication Allergies Medications atorvastatin 20 mg oral tablet = 1 tab, PO, Bedtime, # 90 tab, Refill(s) 1, Pharmacy: [id number] Start Date: 08/30/18 Status: Ordered Results No data available for [...] side effect. 4Result Comment: fluzone (>3 yrs.) [[id number]]. Migrated from OBS ; Data migrated from [employer] on 03/21/2015. 5Result Comment: historical. Migrated from OBS ; Data migrated from [employer] on 03/21/2015. Procedures Procedure Date Related Diagnosis [...]
--- OUTSIDE RECORDS SUMMARY | 2019-07-30 21:29 | XMS REPORT | Summary of Care ---
Author Author [facility] Organization [facility] Address Unknown Phone Unavailable Encounter HQ Jae(FIN) [id number] Date(s): 02/28/17 - 02/28/17 [facility] [address], [address] [place] [address]- [phone] Attending Physician: Kavita Gilmore MD Vital Signs [...] side effect. 2Result Comment: fluzone (>3 yrs.) [[id number]]. Migrated from OBS ; Data migrated from [employer] on 03/21/2015. 3Result Comment: historical. Migrated from OBS ; Data migrated from [employer] on 03/21/2015. Procedures Procedure Date Related Diagnosis [...]
--- OUTSIDE RECORDS SUMMARY | 2019-07-30 21:29 | XMS REPORT | Summary of Care ---
Author Author [facility] Primary Care [facility] Organization [facility] Primary Care [facility] Address Unknown Phone Unavailable Care Team Providers Care Wind Turbine Erector Name Role Phone Kavita Gilmore PCP Encounter HQ Jae([facility]) [id number] Date(s): 08/05/18 - 08/05/18 [facility] [address] [place] [address]- Discharge Disposition: Home or Self Care Attending Physician: Kavita Gilmore MD Vital Signs Most recent to 1 oldest [Reference Range]: Height 149.86 cm (08/05/18 8:54 AM) Temperature Oral 98.2 DegF [96.4-99.1 DegF] (08/05/18 8:54 AM) Blood Pressure 128/85 mmHg [90-140/60-90 mmHg] (08/05/18 8:54 AM) Respiratory Rate 16 BRMIN [14-20 BRMIN] (08/05/18 8:54 AM) Peripheral Pulse 84 bpm Rate [60-100 bpm] (08/05/18 8:54 AM) Weight 72.727 kg (08/05/18 8:54 AM) Body Mass Index 32.38 m2 (08/05/18 8:54 AM) Problem List Condition Effective Dates Status Health Status Informan t Body mass index 30+ 02/28/14 Active - obesity(Confirmed)1 Low vitamin D Active level(Confirmed) Mixed Active hyperlipidemia(Confi rmed) Multiple joint 04/21/13 Active pain(Confirmed)2 Osteopenia(Confirmed Active ) Prediabetes(Confirme Active d) Sleep Active apnea(Confirmed) Subjective visual 04/21/13 - 12/13/16 Resolved disturbance3 Urinary 04/21/13 Active incontinence(Confirm ed)4 1Data migrated from [employer] on 07/16/14. 2Data migrated from [employer] on 07/16/14. 3Data migrated from [employer] on 07/16/14. 4Data migrated from [employer] on 07/16/14. Allergies, Adverse Reactions, Alerts No Known Medication Allergies Medications Xyzal 5 mg oral tablet 5 mg = 1 tab, PO, QPM, # 30 tab, 0 Refill(s), Pharmacy: [id number] Start Date: 08/05/18 Status: Ordered Results No data available for [...] side effect. 4Result Comment: fluzone (>3 yrs.) [[id number]]. Migrated from OBS ; Data migrated from [employer] on 03/21/2015. 5Result Comment: historical. Migrated from OBS ; Data migrated from [employer] on 03/21/2015. Procedures Procedure Date Related Diagnosis [...]
--- OUTSIDE RECORDS SUMMARY | 2019-07-30 21:29 | XMS REPORT | Summary of Care ---
Author Author [facility] Organization [facility] Address Unknown Phone Unavailable Encounter HQ Keysha_sha(FIN) [id number] Date(s): 02/28/17 - 02/28/17 [facility] [address] [place] [address], [address] [place] [address]- [phone] Attending Physician: Kavita Gilmore MD Vital Signs [...] side effect. 2Result Comment: fluzone (>3 yrs.) [[id number]]. Migrated from OBS ; Data migrated from [employer] on 03/21/2015. 3Result Comment: historical. Migrated from OBS ; Data migrated from [employer] on 03/21/2015. Procedures Procedure Date Related Diagnosis [...]
--- OUTSIDE RECORDS SUMMARY | 2019-07-30 21:29 | XMS REPORT | Summary of Care ---
Author Author [facility] Internal Medicine [facility] Organization [facility] Internal Medicine [facility] Address Unknown Phone Unavailable Encounter CAROLINA Rowe(RAVIN) [id number] Date(s): 05/24/19 - 05/24/19 [facility] Internal Medicine [facility] [address] [place] [address]- [phone] Discharge Disposition: Home or Self Care Attending Physician: Kavita Gilmore MD Vital Signs No data available for this section Problem List Condition Effective Dates Status Health Status Informan t Body mass index 30+ 02/28/14 Active - obesity(Confirmed)1 Low vitamin D Active level(Confirmed) Stress at Active home(Confirmed) Mixed Active hyperlipidemia(Confi rmed) Multiple joint 04/21/13 [...] Bedtime, # 90 tab, 1 Refill(s), Pharmacy: [facility] Start Date: 05/24/19 Status: Ordered clotrimazole topical 1% cream 1 appl, TOP, BID, apply to affected area for 2 to 4 weeks, X 7 day, # 15 gm, 1 R efill(s), Pharmacy: [facility]36 Start Date: 05/24/19 Stop Date: 06/07/19 Status: Ordered Tessalon Perles 100 mg oral capsule 100 mg = 1 cap, PO, Q12H, X 14 day, # 28 cap, 0 Refill(s), [facility]acy: [facility] Start Date: 05/24/19 Stop Date: 06/07/19 Status: Ordered Results No data available for [...] side effect. 4Result Comment: fluzone (>3 yrs.) [[id number]]. Migrated from OBS ; Data migrated from [employer] on 03/21/2015. 5Result Comment: historical. Migrated from OBS ; Data migrated from [employer] on 03/21/2015. Procedures Procedure Date Related Diagnosis [...]
--- OUTSIDE RECORDS SUMMARY | 2019-07-30 21:29 | XMS REPORT | Summary of Care ---
Author Author [facility] Organization [facility] Address Unknown Phone Unavailable Encounter HQ Jae(FIN) [id number] Date(s): 03/24/18 - 03/24/18 [facility] [address] [place] [address]- Discharge Disposition: Home or Self Care Attending [...] [employer] on 07/16/14. 4Data migrated from [employer] on 07/16/14. Allergies, Adverse Reactions, Alerts No Known Medication Allergies Medications ciprofloxacin 500 mg oral tablet 500 mg = 1 tab, PO, Q12H, X 7 day, # 14 tab, 0 Refill(s), [facility] Start Date: 03/24/18 Stop Date: 03/31/18 Status: Completed Results No data available for [...] side effect. 4Result Comment: fluzone (>3 yrs.) [[id number]]. Migrated from OBS ; Data migrated from [employer] on 03/21/2015. 5Result Comment: historical. Migrated from OBS ; Data migrated from [employer] on 03/21/2015. Procedures Procedure Date Related Diagnosis [...]
--- OUTSIDE RECORDS SUMMARY | 2019-07-30 21:29 | XMS REPORT | Summary of Care ---
Author Author [facility] Primary [facility] Organization [facility] Address Unknown Phone Unavailable Encounter CAROLINA Rowe(FIN) [id number] Date(s): 04/08/18 - 04/08/18 [facility] [address], [address] [place], [place] [address]- [phone] Discharge Disposition: Home or Self Care Attending Physician: Kavita Gilmore MD Vital Signs Most recent to 1 oldest [Reference Range]: Height 154.94 cm (04/08/18 10:23 AM) Temperature Oral 97.9 DegF [96.4-99.1 DegF] (04/08/18 10:23 AM) Blood Pressure 129/81 mmHg [90-140/60-90 mmHg] (04/08/18 10:23 AM) Respiratory Rate 16 BRMIN [14-20 BRMIN] (04/08/18 10:23 AM) Peripheral Pulse 87 bpm Rate [60-100 bpm] (04/08/18 10:23 AM) Weight 70.455 kg (04/08/18 10:23 AM) Body Mass Index 29.35 m2 (04/08/18 10:23 AM) Problem List Condition Effective Dates Status [...] 07/16/14. 3Data migrated from [employer] on 5/30/15. 4Data migrated from [employer] on 07/16/14. Allergies, Adverse Reactions, Alerts Substance Reaction Severity Status NKDA Active Medications No Known Medications Results No data available for this section [...] side effect. 4Result Comment: fluzone (>3 yrs.) [[id number]]. Migrated from OBS ; Data migrated from [employer] on 03/21/2015. 5Result Comment: historical. Migrated from OBS ; Data migrated from [employer] on 03/21/2015. Procedures Procedure Date Related Diagnosis [...]
--- OUTSIDE RECORDS SUMMARY | 2019-07-30 21:30 | XMS REPORT | Summary of Care ---
Author Author [facility] Organization [facility] Address Unknown Phone Unavailable Encounter HQ Jae(RAVIN) [id number] Date(s): 11/29/14 - 11/30/14 [facility] [address] [place] [address]- [phone] Discharge Diagnosis: Calculus of kidney with calculus of ureter Discharge Disposition: Home Attending Physician: Romi Jones DO Vital Signs Most recent to 1 2 oldest [Reference Range]: Height 149.86 cm (11/29/14 5:49 PM) Most recent to 1 2 oldest [Reference Range]: Temperature Oral 98 DegF 98.3 DegF [96.4-99.1 DegF] (11/30/14 12:29 AM) (11/29/14 5:49 PM) Most recent to 1 2 oldest [Reference Range]: Blood Pressure 135/74 mmHg 151/79 mmHg [90-140/60-90 mmHg] (11/30/14 12:29 AM) *HI* (11/29/14 5:49 PM) Most recent to 1 2 oldest [Reference Range]: Respiratory Rate 18 BRMIN 18 BRMIN [14-20 BRMIN] (11/30/14 12:29 AM) (11/29/14 5:49 PM) Most recent to 1 2 oldest [Reference Range]: Peripheral Pulse 78 bpm 83 bpm Rate [60-100 bpm] (11/30/14 12:29 AM) (11/29/14 5:49 PM) Most recent to 1 2 oldest [Reference Range]: Weight 69.545 kg (11/29/14 5:49 PM) Most recent to 1 2 oldest [Reference Range]: Body Mass Index 30.97 m2 (11/29/14 5:49 PM) Problem List Condition Effective Dates Status Health Status Informan t Acute bronchitis1 01/08/13 Resolved Body mass index 30+ 02/28/14 Active - obesity2 Hypercholesterolemia 12/25/12 Active 3, 4 Hyperlipidemia5, 6, 12/25/12 Resolved 7 Impaired fasting 12/25/12 Resolved glycaemia8, 9 Impaired glucose 12/25/12 Active ahvvwosft55 Iuxbhhpvh39 01/06/14 Resolved Multiple joint 04/21/13 Active pain12 Neck pain13 02/08/14 Resolved Mvhhgqv21, 15, 16 08/12/13 Resolved Otitis , 18 07/14/13 Resolved Subjective visual 04/21/13 Resolved dfwbvgbojsu59 Upper respiratory 12/25/12 Resolved dbzbuqksk06 Urinary 04/21/13 Active ngezcrlpvyhc36 Urinary tract 11/01/13 Resolved infectious rfuxsgt80 Viral mkfgbka70 01/06/14 Resolved Vitamin D 02/28/14 Active ncwnkemwcs42, 25, 26 1Data migrated from [employer] [...] Substance Reaction Severity Status NKDA Active Medications Dilaudid 1 mg, Route: IV, ONCE, Dosing Weight 69.545, kg, Start date: 11/29/14 20:05:00, Stop date: 11/29/14 20:05:00 Start Date: 11/29/14 Stop Date: 11/29/14 Status: Completed Flomax 0.4 mg oral capsule 0.4 mg = 1 cap, PO, Daily, # 7 cap, 0 Refill(s) Start Date: 11/29/14 Stop Date: 12/06/14 Status: Ordered ketOROLAC 30 mg/mL injectable solution 30 mg, Route: IV, ONCE, Dosing Weight 69.545, kg, Start date: 11/29/14 23:04:00, Stop date: 11/29/14 23:04:00 Start Date: 11/29/14 Stop Date: 11/29/14 Status: Completed morphine Sulfate 4 mg, Route: IVP, ONCE, Dosing Weight 69.545, kg, Start date: 11/29/14 23:12:00, Stop date: 11/29/14 23:12:00 Start Date: 11/29/14 Stop Date: 11/29/14 Status: Completed NS (Bolus) IV 1,000 mL, 1,000 ml/hr, Infuse Over: 1 hr, Route: IV, ONCE, Priority: STAT, Dosin g Weight 69.545 kg, Start date: 11/29/14 20:06:00, Duration: 1 doses or times, S top date: 11/29/14 20:06:00 Start Date: 11/29/14 Stop Date: 11/29/14 Status: Completed Zofran 4 mg, Route: IVP, Drug form: INJ, ONCE, Dosing Weight 69.545, kg, Priority: STAT , Start date: 11/29/14 20:05:00, Stop date: 11/29/14 20:05:00 Start Date: 11/29/14 Stop Date: 11/29/14 Status: Completed Zofran ODT 4 mg oral tablet, disintegrating 4 mg = 1 tab, PO, BID, PRN Nausea and Vomiting, Dissolve tab under tongue, X 4 d ay, # 8 tab, 0 Refill(s) Special Instructions: Dissolve tab under tongue Start Date: 11/29/14 Stop Date: 12/03/14 Status: Ordered Results ELECTROLYTES Most recent to 1 oldest [Reference Range]: Sodium Lvl [135-145 138 mEq/L mEq/L] (11/29/14 7:47 PM) Potassium Lvl 3.8 mEq/L [3.5-5.1 mEq/L] (11/29/14 7:47 PM) Chloride Lvl [95-109 106 mEq/L mEq/L] (11/29/14 7:47 PM) CO2 [24-32 mEq/L] 22 mEq/L *LOW* (11/29/14 7:47 PM) AGAP [10.0-20.0 13.8 mEq/L mEq/L] (11/29/14 7:47 PM) CHEM PANEL Most recent to 1 oldest [Reference Range]: Creatinine Lvl 1.1 mg/dL [0.5-1.4 mg/dL] (11/29/14 7:47 PM) eGFR 57 mL/min/1.73m2 1 *NA* (11/29/14 7:47 PM) BUN [7-22 mg/dL] 20 mg/dL (11/29/14 7:47 PM) B/C Ratio [6-25] 18 (11/29/14 7:47 PM) Glucose Lvl [70-99 139 mg/dL mg/dL] *HI* (11/29/14 7:47 PM) Total Protein 8.3 g/dL [6.4-8.4 g/dL] (11/29/14 7:47 PM) Albumin Lvl [3.5-5.0 3.9 g/dL g/dL] (11/29/14 7:47 PM) Globulin [2.0-4.0 4.4 g/dL g/dL] *HI* (11/29/14 7:47 PM) A/G Ratio [0.7-1.6] 0.9 (11/29/14 7:47 PM) Calcium Lvl 9.0 mg/dL [8.5-10.5 mg/dL] (11/29/14 7:47 PM) ALT [0-65 unit/L] 45 unit/L (11/29/14 7:47 PM) AST [0-37 unit/L] 18 unit/L (11/29/14 7:47 PM) Alk Phos [39-136 113 unit/L unit/L] (11/29/14 7:47 PM) Bili Total [0.2-1.3 0.1 mg/dL mg/dL] *LOW* (11/29/14 7:47 PM) Lipase Lvl [73-393 111 unit/L unit/L] (11/29/14 7:47 PM) 1Result Comment: The eGFR is calculated using the [...] from the National Kidney Disease Education Program ( NKDEP) which additionally recommends that when the eGFR is used in patients with extremes of body mass index for purposes of drug dosing, the eGFR should be mul tiplied by the estimated BMI. URINE AND STOOL Most recent to 1 oldest [Reference Range]: UA Turbidity [Clear] Marked *ABN* (11/29/14 8:18 PM) UA Color [Yellow] Yellow *NA* (11/29/14 8:18 PM) UA pH [5.0-8.0] 5.0 (11/29/14 8:18 PM) UA Spec Grav 1.023 [<=1.030] (11/29/14 8:18 PM) UA Glucose [Negative Negative mg/dL mg/dL] *NA* (11/29/14 8:18 PM) UA Blood [Negative] Large *ABN* (11/29/14 8:18 PM) UA Ketones [Negative Negative mg/dL mg/dL] *NA* (11/29/14 8:18 PM) UA Protein [Negative Negative mg/dL mg/dL] (11/29/14 8:18 PM) UA Urobilinogen <=1.0 mg/dL [0.1-1.0 mg/dL] *NA* (11/29/14 8:18 PM) UA Bili [Negative] Negative *NA* (11/29/14 8:18 PM) UA Leuk Est Negative [Negative] (11/29/14 8:18 PM) UA Nitrite Negative [Negative] (11/29/14 8:18 PM) UA WBC [0-5 /HPF] 3 /HPF (11/29/14 8:18 PM) UA RBC [0-2 /HPF] >182 /HPF *HI* (11/29/14 8:18 PM) UA Bacteria [None Occasional /HPF Seen /HPF] *NA* (11/29/14 8:18 PM) UA Sq Epi [Few /LPF] Few /LPF *NA* (11/29/14 8:18 PM) UA Mucus [None Seen Few /LPF /LPF] *NA* (11/29/14 8:18 PM) HEMATOLOGY Most recent to 1 oldest [Reference Range]: WBC [3.7-10.4 K/CMM] 17.2 K/CMM *HI* (11/29/14 7:47 PM) RBC [4.20-5.40 4.53 M/CMM M/CMM] (11/29/14 7:47 PM) Hgb [12.0-16.0 g/dL] 13.1 g/dL (11/29/14 7:47 PM) Hct [36.0-48.0 %] 41.3 % (11/29/14 7:47 PM) MCV [80.0-98.0 fL] 91.3 fL (11/29/14 7:47 PM) MCH [27.0-31.0 pg] 29.0 pg (11/29/14 7:47 PM) MCHC [32.0-36.0 31.8 g/dL g/dL] *LOW* (11/29/14 7:47 PM) RDW [11.5-14.5 %] 13.6 % (11/29/14 7:47 PM) Platelet [133-450 296 K/CMM K/CMM] (11/29/14 7:47 PM) MPV [7.4-10.4 fL] 10.0 fL (11/29/14 7:47 PM) Segs [45.0-75.0 %] 86.4 % *HI* (11/29/14 7:47 PM) Lymphocytes 8.6 % [20.0-40.0 %] *LOW* (11/29/14 7:47 PM) Monocytes [2.0-12.0 4.5 % %] (11/29/14 7:47 PM) Eosinophils [0.0-4.0 0.1 % %] (11/29/14 7:47 PM) Basophils [0.0-1.0 0.4 % %] (11/29/14 7:47 PM) Segs-Bands # 14.9 K/CMM [1.5-8.1 K/CMM] *HI* (11/29/14 7:47 PM) Lymphocytes # 1.5 K/CMM [1.0-5.5 K/CMM] (11/29/14 7:47 PM) Monocytes # [0.0-0.8 0.8 K/CMM K/CMM] (11/29/14 7:47 PM) Basophils # [0.0-0.2 0.1 K/CMM K/CMM] (11/29/14 7:47 PM) PT [12.0-14.7 12.9 seconds seconds] (11/29/14 7:47 PM) INR [0.85-1.17] 0.94 (11/29/14 7:47 PM) PTT [22.9-35.8 29.7 seconds seconds] (11/29/14 7:47 PM) Immunizations Vaccine Date Refusal Reason influenza virus vaccine, inactivated 11/14/14 Procedures Procedure Date Related Diagnosis Body Site Mammogram 09/2014 Eye examination 12/2013 Bone density scan1 04/2013 Colonoscopy2 01/2012 Endoscopy3 01/2012 section4 1Normal 2Next 5 years 3Gastritis 4x2 Social History Social History Type Response Alcohol Current, Type Beer. Freque ncy: 1-2 times per month. Smoking Status Current some day smoker; Li ves with someone who smokes; Cigarette Smoking Last 365 Days Yes; Reg Smoking Cessatio n Counseling No Assessment and Plan No data available for this section
--- OUTSIDE RECORDS SUMMARY | 2019-07-30 21:30 | XMS REPORT | Summary of Care ---
Author Author [facility] Organization [facility] Address Unknown Phone Unavailable Encounter HQ Jae(FIN) [id number] Date(s): 03/27/16 - 03/27/16 [facility] [address] [place] [address]- [phone] Discharge Disposition: Home or Self Care Attending Physician: Kavita Gilmore MD Referring Physician: Kavita Gilmore MD Vital Signs No data available for this section Problem List Condition Effective Dates Status Health Status Informan t Acute bronchitis1 01/08/13 Resolved Benign Active hypertension(Confirm ed) Body mass index 30+ 02/28/14 Active - obesity2 Bronchitis(Confirmed Active ) Hypercholesterolemia 12/25/12 Active (Confirmed)3, 4 Hyperlipidemia5, 6, 12/25/12 Resolved 7 Impaired fasting 12/25/12 Resolved glycaemia8, 9 Impaired glucose 12/25/12 Active tolerance(Confirmed) 10 Ddbybkdfm31 01/06/14 Resolved Multiple joint 04/21/13 Active pain12 Neck pain13 02/08/14 Resolved Osteopenia(Confirmed Active ) Cnsycub06, 15, 16 08/12/13 Resolved Otitis vmcmxxa09, 18 07/14/13 Resolved Subjective visual 04/21/13 Resolved uvaiosnpwfs59 Upper respiratory 12/25/12 Resolved Urinary 04/21/13 Active incontinence(Confirm ed)21 Urinary tract 11/01/13 Resolved infectious zxetilr30 Viral ccefwtu60 01/06/14 Resolved Vitamin D 02/28/14 Active snfyvnuwex86, 25, 26 1Data migrated from [employer] [...] and Recorded Vaccine Date Status Refusal Reason Hx influenza vaccine-unspecified1 12/20/11 Give n influenza virus vaccine, inactivated 11/14/14 G iven influenza virus vaccine, inactivated2 12/25/12 Given 1Result Comment: historical. Migrated from OBS ; Data migrated from [employer] on 03/21/2015. 2Result Comment: fluzone (>3 yrs.) [[id number]]. Migrated from OBS ; Data migrated from [employer] on 03/21/2015. Procedures Procedure Date Related Diagnosis Body Site Bone density scan1 03/27/16 Mammogram 03/27/16 Cardiovascular stress test using treadmill2 01/2015 Echocardiography3 01/09/15 Colonoscopy4 01/2012 Endoscopy5 01/2012 section6 1Previous dexa: Normal to new dexa: osteopenia [...]
[2019-07-30] MEDS ORDERED: KETOROLAC TROMETHAMINE 30 MG/ML VIAL IV STA (22:38)
[2019-07-30] MEDS ORDERED: ONDANSETRON HCL INJ 2MG/ML 2ML 2 MG/ML VIAL IV STA (22:38)
[2019-07-30 23:07] LABS: BASOPHILS # (AUTO) 0.1 (0.0-0.1); BASOPHILS % 0.3 % (0.0-1.0); EOSINOPHILS # (AUTO) 0.1 (0.0-0.4); EOSINOPHILS % 0.7 % (0.0-6.0); HEMATOCRIT 41.1 % (34.2-44.1); LYMPHOCYTES % 17.7 % (18.0-39.1); MEAN CORPUSCULAR HEMOGLOBIN 28.2 pg (28-32); MEAN CORPUSCULAR HGB CONC 31.6 g/dL (31-35); MEAN CORPUSCULAR VOLUME 89.2 fL (81-99); MONOCYTES # (AUTO) 1.5 (0.2-0.8); MONOCYTES % 8.5 % (4.4-11.3); NEUTROPHILS # (AUTO) 12.3 (2.1-6.9); NEUTROPHILS % 72.3 % (38.7-80.0); PLATELET COUNT 336 x10e3/uL (140-360); RED BLOOD COUNT 4.61 x10e6/uL (3.6-5.1); RED CELL DISTRIBUTION WIDTH 13.2 % (11.7-14.4)
[2019-07-30] MEDS ORDERED: ACETAMINOPHEN 325 MG TAB PO ONE (23:15)
[2019-07-30 23:21] LABS: ALANINE AMINOTRANSFERASE 46 IU/L (0-55); ALKALINE PHOSPHATASE 132 IU/L (40-150); ANION GAP 16.8 mmol/L (8-16); BLOOD UREA NITROGEN 16 mg/dL (7-26); BUN/CREATININE RATIO 19 (6-25); CALCIUM 9.5 mg/dL (8.4-10.2); CARBON DIOXIDE 21 mmol/L (22-29); CHLORIDE 106 mmol/L (98-107); CREATININE, SERUM 0.83 mg/dL (0.57-1.11); EST GLOMERULAR FILTRATION RATE > 60 ML/MIN (60-); GLUCOSE 131 mg/dL (74-118); POTASSIUM 3.8 mmol/L (3.5-5.1); SODIUM 140 mmol/L (136-145)
[2019-07-30 23:51] LABS: CLARITY,URINE CLOUDY (CLEAR); COLOR,URINE AMBER (YELLOW); LEUKOCYTE ESTERASE ,URINE TRACE (NEGATIVE)
[2019-07-30 23:52] LABS: BACTERIA,URINE MANY /HPF; BILIRUBIN,URINE NEGATIVE (NEGATIVE); EPITHELIAL CELLS,URINE MANY /LPF; KETONES,URINE TRACE (NEGATIVE); NITRITE,URINE NEGATIVE (NEGATIVE); PROTEIN,URINE DIPSTICK 1+ (NEGATIVE); RBC,URINE >50 /HPF (0-5); URINE UROBILINOGEN 0.2 mg/dL (0.2 - 1); WBC,URINE (MAN) >50 /HPF (0-5)
[2019-07-31] VITALS (9 sets, daily range): BP systolic 108–144; BP diastolic 56–78
--- NOTE | 2019-07-31 00:02 | Diagnostic Imaging Report ---
EXAM: CT Abdomen and Pelvis WITHOUT contrast INDICATION: ^left flank pain, stone protocol ^[id number] ^2310 ^Y COMPARISON: None. TECHNIQUE: Abdomen and pelvis were scanned utilizing a multidetector helical scanner from the lung base to the pubic symphysis without administration of IV contrast. Absence of intravenous contrast decreases sensitivity for detection of focal lesions and vascular pathology. Coronal and sagittal reformations were obtained. Routine protocol was performed. IV CONTRAST: None ORAL CONTRAST: Water COMPLICATIONS: None RADIATION DOSE: Total DLP: 579.37 mGy*cm Estimated effective dose: (DLP x 0.015 x size factor) mSv CTDIvol has been reviewed. It is below the limits set by the Radiation Protocol Committee (RPC). FINDINGS: LINES and TUBES: None. LOWER THORAX: Mild dependent atelectasis, right greater than left. HEPATOBILIARY: Unenhanced liver is unremarkable. No biliary ductal dilation. GALLBLADDER: No radio-opaque stones or sludge. No wall thickening. SPLEEN: No splenomegaly. PANCREAS: No focal masses or ductal dilatation. ADRENALS: No adrenal nodules KIDNEYS/URETERS: 3 mm left renal superior pole calculus. Mild left hydroureteronephrosis, caused by a 3 mm left ureterovesical junction calculus. Minimal left perinephric fat stranding. No right renal calculus. No right hydronephrosis. GI TRACT: No abnormal distention, wall thickening, or evidence of bowel obstruction. Few scattered colonic diverticula without evidence of diverticulitis. Appendix is not visualized. PELVIC ORGANS/BLADDER: Bladder is under distended. Left ureterovesical junction calculus as described above. LYMPH NODES: No lymphadenopathy. VESSELS: Unremarkable. PERITONEUM / RETROPERITONEUM: No free air or fluid. BONES: Minimal retrolisthesis of L5 in relation to L4. No suspicious osseous lesions. SOFT TISSUES: Unremarkable. IMPRESSION: 1. 3 mm left ureterovesical junction calculus with mild left hydroureteronephrosis. 2. 3 mm left renal superior pole nonobstructive calculus. Signed by: Dr. Carlos Samayoa MD on 07/30/2019 11:59 PM
[2019-07-31] MEDS ORDERED: ACETAMINOPHEN 325 MG TAB PO PRN (00:45)
[2019-07-31] MEDS ORDERED: CEFTRIAXONE SOD 1 GM/NS 50 ML 50 ML IV SCH (00:45)
[2019-07-31] MEDS ORDERED: ONDANSETRON HCL INJ 2MG/ML 2ML 2 MG/ML VIAL IV PRN (00:45)
[2019-07-31] MEDS ORDERED: MORPHINE SULFATE 2 MG/ML SYR 1ML IV PRN (00:45)
--- NOTE | 2019-07-31 00:50 | Emergency Department Note ---
History of Present Illnes History of Present Illness Chief Complaint: Abdominal Complaints History of Present Illness This is a 58 year old female presents with complaint left flank pain radiating around her vagina starting at 8 PM. Also states she has dysuria. Patient reports history of kidney stones and this feels like when she's had kidney stones before.. Historian: Patient Arrival Mode: Car Onset (how long ago): hour(s) (1) Location: LEFT FLANK Quality: PAIN Radiation: Reports other (LOWER ABDOMEN/VAGINA) Severity: severe Onset quality: sudden Duration (how long): hour(s) (2) Timing of current episode: constant Progression: unchanged Chronicity: new Context: Denies recent illness, Denies recent surgery Relieving factors: none Exacerbating factors: none Associated symptoms: Reports nausea/vomiting Treatments prior to arrival: none Past Medical/Family History Physician Review I have reviewed the patient's past medical and family history. Any updates have been documented here. Past Medical History Recent Fever: No Clinical Suspicion of Infectio: No New/Unexplained Change in Ment: No Past Medical History: Kidney Stones, Hyperlipedemia Other Medical History: HYPERLIPIDEMIA, OVERACTIVE BLADDER, KIDNEY STONES, GALL STONES Past Surgical History: Social History Smoking Cessation: Never Smoker Counseling Performed: No Alcohol Use: None Any Illegal Drug Use: No TB Exposure/Symptoms: No Physically hurt or threatened: No Family History Family history of heart diseas: No Other Last Tetanus: UNKNOWN Any Pre-Existing Lines (PICC,: No Is patient up to date on immun: Yes Last Flu: DENIES Last Pneumovax: DENIES Review of Systems Review of Systems Constitutional: Reports no symptoms EENTM: Reports no symptoms Cardiovascular: Reports no symptoms Respiratory: Reports no symptoms Gastrointestinal: Reports no symptoms Genitourinary: Reports as per HPI Musculoskeletal: Reports no symptoms Integumentary: Reports no symptoms Neurological: Reports no symptoms Psychological: Reports no symptoms Endocrine: Reports no symptoms Hematological/Lymphatic: Reports no symptoms Physical Exam Related Data Allergies: Coded Allergies: No Known Allergies (Unverified , 10/20/15) Triage Vital Signs Vital Signs Date Time Temp Pulse Resp B/P (MAP) Pulse Ox O2 Delivery O2 Flow Rate FiO2 07/30/19 22:35 100.3 99 17 173/89 98 Vital signs reviewed: Yes Physical Exam CONSTITUTIONAL Constitutional: Present well-developed, Present well-nourished HENT HENT: Present normocephalic, Present atraumatic, Present oropharynx clear/moist, Present nose normal HENT L/R: Present left ext ear normal, Present right ext ear normal EYES Eyes: Reports PERRL, Reports conjunctivae normal NECK Neck: Present ROM normal PULMONARY Pulmonary: Present effort normal, Present breath sounds normal CARDIOVASCULAR Cardiovascular: Present regular rhythm, Present heart sounds normal, Present capillary refill normal, Present normal rate GASTROINTESTINAL Abdominal: Present soft, Present nontender, Present bowel sounds normal, Prese nt left CVA tenderness (MODERATE) GENITOURINARY Genitourinary: Present exam deferred SKIN Skin: Present warm, Present dry MUSCULOSKELETAL Musculoskeletal: Present ROM normal NEUROLOGICAL Neurological: Present alert, Present oriented x 3, Present no gross motor or sensory deficits PSYCHOLOGICAL Psychological: Present mood/affect normal, Present judgement normal Results Laboratory Result Diagram: 07/30/19223907/30/192239 Laboratory Laboratory Tests Test 07/30/19 22:40 White Blood Count 17.03 x10e3/uL (4.8-10.8) Red Blood Count 4.61 x10e6/uL (3.6-5.1) Hemoglobin 13.0 g/dL (12.0-16.0) Hematocrit 41.1 % (34.2-44.1) Mean Corpuscular Volume 89.2 fL (81-99) Mean Corpuscular Hemoglobin 28.2 pg (28-32) Mean Corpuscular Hemoglobin Concent 31.6 g/dL (31-35) Red Cell Distribution Width 13.2 % (11.7-14.4) Platelet Count 336 x10e3/uL (140-360) Neutrophils (%) (Auto) 72.3 % (38.7-80.0) Lymphocytes (%) (Auto) 17.7 % (18.0-39.1) Monocytes (%) (Auto) 8.5 % (4.4-11.3) Eosinophils (%) (Auto) 0.7 % (0.0-6.0) Basophils (%) (Auto) 0.3 % (0.0-1.0) Neutrophils # (Auto) 12.3 (2.1-6.9) Lymphocytes # (Auto) 3.0 (1.0-3.2) Monocytes # (Auto) 1.5 (0.2-0.8) Eosinophils # (Auto) 0.1 (0.0-0.4) Basophils # (Auto) 0.1 (0.0-0.1) Absolute Immature Granulocyte (auto 0.09 x10e3/uL (0-0.1) Urine Color Bertha (YELLOW) Urine Clarity Cloudy (CLEAR) Urine pH 6 (5 - 7) Urine Specific [place] >=1.030 (1.010-1.025) Urine Protein 1+ (NEGATIVE) Urine Glucose (UA) Negative (NEGATIVE) Urine Ketones Trace (NEGATIVE) Urine Blood Large (NEGATIVE) Urine Nitrite Negative (NEGATIVE) Urine Bilirubin Negative (NEGATIVE) Urine Urobilinogen 0.2 mg/dL (0.2 - 1) Urine Leukocyte Esterase Trace (NEGATIVE) Urine RBC >50 /HPF (0-5) Urine WBC >50 /HPF (0-5) Urine Epithelial Cells Many /LPF (NONE) Urine Bacteria Many /HPF (NONE) Sodium Level 140 mmol/L (136-145) Potassium Level 3.8 mmol/L (3.5-5.1) Chloride Level 106 mmol/L (98-107) Carbon Dioxide Level 21 mmol/L (22-29) Anion Gap 16.8 mmol/L (8-16) Blood Urea Nitrogen 16 mg/dL (7-26) Creatinine 0.83 mg/dL (0.57-1.11) Estimat Glomerular Filtration Rate > 60 ML/MIN (60-) BUN/Creatinine Ratio 19 (6-25) Glucose Level 131 mg/dL (74-118) Calcium Level 9.5 mg/dL (8.4-10.2) Total Bilirubin 0.2 mg/dL (0.2-1.2) Aspartate Amino Transf (AST/SGOT) 26 IU/L (5-34) Alanine Aminotransferase (ALT/SGPT) 46 IU/L (0-55) Alkaline Phosphatase 132 IU/L (40-150) Total Protein 8.0 g/dL (6.5-8.1) Albumin 4.0 g/dL (3.5-5.0) Globulin 4.0 g/dL (2.3-3.5) Albumin/Globulin Ratio 1.0 (0.8-2.0) Lab results reviewed: Yes Imaging Imaging results reviewed: Yes Impressions CT ABD/PELVIS IMPRESSION: 1. 3 mm left ureterovesical junction calculus with mild left hydroureteronephrosis. 2. 3 mm left renal superior pole nonobstructive calculus. Signed by: Dr. Carlos Samayoa MD on 07/30/2019 11:59 PM Assessment & Plan Medical Decision Making MDM Patient with left flank pain radiating to left lower quadrant vagina with history of kidney stones. CBC, CMP, UA, urine culture, CT abdomen and pelvis ordered to eval for UTI, electrolyte abnormality, renal insufficiency, kidney stones. CT revealed 3 mm distal left ureteral stone patient also has UTI and a white count. I spoke with Dr. Subramanian and Dr. Perez. Patient to be admitted inpatient started on IV antibiotics kept nothing by mouth. Assessment & Plan Final Impression: (1) Ureterolithiasis (2) UTI (urinary tract infection) Last Vital Signs Date Time Temp Pulse Resp B/P (MAP) Pulse Ox O2 Delivery O2 Flow Rate FiO2 07/31/19 00:31 99.1 88 17 120/64 100 Medications in the ED Ketorolac Tromethamine 30 mg ONCE STAT IV Last administered on 07/30/19at 22:52; Admin Dose 30 MG; Start 07/30/19 at 22:38; Stop 07/30/19 at 22:51; Status DC Ondansetron HCl 4 mg NOW STAT IV Last administered on 07/30/19at 22:52; Admin Dose 4 MG; Start 07/30/19 at 22:38; Stop 07/30/19 at 22:51; Status DC Acetaminophen 650 mg ONCE ONCE PO Last administered on 07/30/19at 23:07; Admin Dose 650 MG; Start 07/30/19 at 23:15; Stop 07/30/19 at 23:19; Status DC Ceftriaxone Sodium 50 ml @ 100 mls/hr Q24H IV ; Start 07/31/19 at 00:45; Stop 08/07/19 at 00:44; Status KAMIV RAUL SAVAGE MD Jul 31, 2019 00:50
--- OUTSIDE RECORDS SUMMARY | 2019-07-31 01:19 | XMS REPORT | Continuity of Care Document ---
Author Author [facility] Organization [facility] Address Unknown Phone Unavailable Care Team Providers Care Jailer Chief Name Role Phone [employer] Information [employer] Unavailable Un available Problems Problem Status Onset Date Classification Date Reported Comments Source MAMMO SCREENING MAGNUS Active 03/30/2018 [facility] SCREENING MAMMO Active 04/03/2017 [facility] DX: Z12.39=ENCOUNTER FOR OTHER SCREENING Active 02/21/2016 [facility] FIRST [id number] Active 04/26/2015 [facility] Discharge Diagnosis: Calculus of kidney with calculus of ureter 11/29/2014 12/03/2014 [facility] FLANK PAIN /OTHER Active 11/29/2014 [facility] E78.0 Active 11/23/2014 [facility] SCREENING Active 09/16/2014 [facility] Body mass index 30+ - obesity (finding) Active 02/28/2014 Problem 05/26/2019 Data migrated from [employer] on 07/16/14[facility] D deficiency (disorder) Active 02/28/2014 Problem 08/02/2017 Data migrated from [employer] on . Data migrated from [employer] on 07/19/14. Data migrated from [employer] on 07/16/14. [facility] Neck pain (finding) Resolved 02/08/2014 Problem 03/30/2016 Data migrated from [employer] on 07/16. [facility] Influenza (disorder) Resolved 01/06/2014 Problem 03/30/2016 Data migrated from [employer] on 09/03. [facility] Viral disease (disorder) Resol ree 01/06/2014 Problem 03/30/2016 Data migrated from [employer] on 09/03. [facility] Urinary tract infectious disease (disorder) Resolved 11/01/2013 Problem 03/30/2016 Data migrated from [employer] on 09/03/14. [facility] Otalgia (disorder) Resolved 08/12/2013 Problem 03/30/2016 Data migrated from [employer] on 09/03. Data migrated from [employer] on 08/24/14. Data migrated from [employer] on 07/19/14. [facility] Otitis externa (disorder) Reso lved 07/14/2013 Problem 03/30/2016 Data migrated from [employer] on 09/03. Data migrated from [employer] on 09/03/14. [facility] PSOTMENOPOSAL Active 04/22/2013 [facility] Multiple joint pain (finding) Active 04/21/2013 Problem 05/26/2019 Data migrated from [employer] on 07/16. [facility] Subjective visual disturbance (disorder) Resolved 04/21/2013 Problem 05/26/2019 Data migrated from [employer] on 07/16/14. [facility] Urinary incontinence (finding) Active 04/21/2013 Problem 05/26/2019 Data migrated from [employer] on 07/16. [facility] Acute bronchitis (disorder) Re solved 01/08/2013 Problem 03/30/2016 Data migrated from [employer] on 09/03. [facility] Hypercholesterolemia (disorder) Active 12/25/2012 Problem 03/30/2016 Data migrated from [employer] on . Data migrated from [employer] on 07/19/14. [facility] Impaired fasting glycaemia (disorder) Resolved 12/25/2012 Problem 03/30/2016 Data migrated from [employer] on 08/24/14. Data migrated from [employer] on 07/16/14. [facility] Impaired glucose tolerance (disorder) Active 12/25/2012 Problem 03/30/2016 Data migrated from [employer] on . [facility] Upper respiratory infection (disorder) Resolved 12/25/2012 Problem [...] t Benign hypertension (disorder) Active Problem 12/2016 [facility] Bronchitis (disorder) Active Problem 03/30/2016 [facility] Encounter for screening mammogram for ma lignant neoplasm of breast 04/09/2018 [facility] Family tension (finding) Active Problem 05/26/2019 [facility] XRAY Active [facility] Medications Medication Details Route Status Patient Instructions Ordering Provider Order Date Source Clotrimazole 10 MG/ML Topical Cream 1 appl, TOP, BID, apply to affected area for 2 to 4 weeks, X 7 day, # 15 gm, 1 Refill(s), Pharmacy: [facility] Active 05/24/2019 [facility] benzonatate 100 MG Oral Capsule [Tessalon Perles] 100 mg = 1 cap, PO, Q12H, X 14 day, # 28 cap, 0 Refill(s), Pharmacy: [facility] Active 05/24/2019 [facility] atorvastatin 20 mg oral tablet = 1 tab, PO, Bedtime, # 90 tab, 1 Refill(s), Pharmacy: [facility] Active 05/24/2019 [facility] atorvastatin 20 mg oral tablet = 1 tab, PO, Bedtime, # 90 tab, Refill(s) 1, Pharmacy: [facility] Active 08/30/2018 [facility] benzonatate 100 MG Oral Capsule [Tessalon Perles] 100 mg = 1 cap, PO, BID, X 14 day, # 28 cap, 0 Refill(s), Pharmacy: [facility] Active 08/25/2018 [facility] Betamethasone 0.5 MG/ML / Clotrimazole 1 0 MG/ML Topical Cream 1 appl, TOP, BID, X 14 day, # 45 gm, 1 R efill(s), Pharmacy: [facility] Active 08/25/2018 [facility] levocetirizine dihydrochloride 5 MG Oral Tablet [Xyzal ] 5 mg = 1 tab, PO, QPM, # 30 tab, 0 Refill(s), Pharmacy: [facility] Active 08/05/2018 [facility] ciprofloxacin 500 mg oral tablet 500 mg = 1 tab, PO, Q12H, X 7 day, # 14 tab, 0 Refill(s), Pharmacy: [facility] No Longer Active 03/24/2018 [facility] cefdinir 300 MG Oral Capsule 3 00 mg = 1 cap, PO, Q12H, X 5 day, # 10 cap, 0 Refill(s), Pharmacy: [facility] No Longer Active 01/09/2018 [facility] atorvastatin 10 mg oral tablet 10 mg = 1 tab, PO, Bedtime, # 90 tab, 1 Refill(s), Pharmacy: [facility] No Longer Active 12/02/2017 [facility] atorvastatin 10 mg oral tablet 10 mg = 1 tab, PO, Bedtime, # 90 tab, 1 Refill(s), Pharmacy: [facility] Active 07/31/2017 [facility] Group nitrofurantoin macrocrystals 100 mg oral capsule (Macrodantin) 100 mg = 1 cap, PO, QID, X 7 day, # 28 c ap, 0 Refill(s), Pharmacy: [facility] No Longe r Active 04/11/2017 [facility] Acetic Acid 20 MG/ML Otic Solution 5 drp, BOTH EARS, TID, X 7 day, # 15 ml, 0 Refill(s), Pharmacy: [facility] No Longer Active 04/10/2017 [facility] Sulfamethoxazole 800 MG / Trimethoprim 1 60 MG Oral Tablet [Bactrim] 1 tab, PO, BID, X 5 day, # 10 tab, 0 Ref ill(s), Pharmacy: [facility] No Longer Active 04/08/2017 [facility] Ondansetron 4 MG Disintegrating Tablet [Zofran] Special Instructions: Dissolve tab under tongue Active 11/30/2014 [facility] Tamsulosin hydrochloride 0.4 MG Oral Capsule [Flomax] 0.4 mg = 1 cap, PO, Daily, # 7 cap, 0 Refill(s) Active 11/30/2014 [facility] Morphine 4 mg, Route: IVP, ONC E, Dosing Weight 69.545, kg, Start date: 11/29/14 23:12:00, Stop date: 11/29/14 23:12:00 Inactive 11/30/2014 [facility] ketOROLAC 30 mg/mL injectable solution 30 mg, Route: IV, ONCE, Dosing Weight 69.545, kg, Start date: 11/29/14 23:04:00, Stop date: 11/29/14 23:04:00 Inactive 11/30/2014 [facility] Sodium Chloride 0.154 MEQ/ML Injectable Solution 1,000 mL, 1,000 ml/hr, Infuse Over: 1 hr, Route: IV, ONCE, Priority: STAT, Dosing Weight 69.545 kg, Start date: 11/29/14 20:06:00, Duration: 1 doses or times, Stop date: 11/29/14 20:06:00 Inactive 11/30/2014 [facility] Zofran 4 mg, Route: IVP, Drug form: INJ, ONCE, Dosing Weight 69.545, kg, Priority: STAT, Start date: 11/29/14 20:05:00, Stop date: 11/29/14 20:05:00 Inactive 11/30/2014 [facility] Dilaudid 1 mg, Route: IV, ONCE , Dosing Weight 69.545, kg, Start date: 11/29/14 20:05:00, Stop date: 11/29/14 20:05:00 Inactive 11/30/2014 [facility] Allergies, Adverse Reactions, Alerts Substance Category Reaction Severity Reaction type Status Date Reported Comments Source No Known Medication Allergies Assertion Drug aller gy [facility] Group Immunizations Immunization Date Given Site Status Last Updated Comments Source diphtheria/pertussis, acel/tetanus adult<sup>1</sup> 12/01/2017 Right Deltoid completed [facility] Result Comment: Patient waited in room ten mins no allergic reaction. [facility] influenza virus vaccine, inactivated<sup>2</sup> 12/01/2017 Left Deltoid completed [facility] Result Comment: Patient waited in room ten mins no allergic reaction. [facility] influenza virus vaccine, inactivated<sup>3</sup> 10/29/2016 Left Deltoid completed [facility] Result Comment: Patient waited in room for 10 mins no side effect. [facility] influenza virus vaccine, inactivated<sup>1</sup> 10/29/2016 Left Deltoid completed [facility] Result Comment: Patient waited in room for 10 mins no side effect. [facility] influenza virus vaccine, inactivated 11/14/2014 Left Deltoid completed [facility] influenza virus vaccine, inactivated<sup>4</sup> 12/25/2012 Left Deltoid completed [facility] Result Comment: fluzone (>3 yrs.) [[id number]]. Migrated from OBS ; Data migrated from [employer] on 03/21/2015. [facility] influenza virus vaccine, inactivated<sup>2</sup> 12/25/2012 Left Deltoid completed [facility] Result Comment: fluzone (>3 yrs.) [[id number]]. Migrated from OBS ; Data migrated from [employer] on 03/21/2015. [facility] Hx influenza vaccine-unspecified<sup>5</sup> 12/20/2011 completed [facility] Result Comment: historical. Migrated from OBS ; Data migrated from [employer] on 03/21/2015. [facility] Hx influenza vaccine-unspecified<sup>3</sup> 12/20/2011 completed [facility] Result Comment: historical. Migrated from OBS ; Data migrated from [employer] on 03/21/2015. [facility] Hx influenza vaccine-unspecified<sup>1</sup> 12/20/2011 completed [facility] Result Comment: historical. Migrated from OBS ; Data migrated from [employer] on 03/21/2015. [facility] Results Order Name Results Value Reference Range Date Interpretation Comments Source URINE AND STOOL UA Urobilinogen <=1.0 mg/dL 0.1 - 1.0 11/30/2014 [facility] URINE AND STOOL UA Bacteria Occasional /HPF None Seen /HPF 11/30/2014 [facility] URINE AND STOOL UA Mucus Few /LPF None Seen /LPF 11/30/2014 [facility] URINE AND STOOL UA WBC 3 0 - 5 11/30/2014 [facility] URINE AND STOOL UA Leuk Est Negative (11/29/14 8:18 PM) Negative 11/30/2014 [facility] URINE AND STOOL UA Sq Epi Few /LPF Few /LPF 11/30/2014 [facility] URINE AND STOOL UA Nitrite Negative (11/29/14 8:18 PM) Negative 11/30/2014 [facility] URINE AND STOOL UA RBC >182 0 - 2 11/30/2014 [facility] URINE AND STOOL UA Blood Large *ABN* (10/13/15 8:18 PM) Negative 11/30/2014 [facility] URINE AND STOOL UA Glucose Negative mg/dL Negative mg/dL 11/30/[address] [facility] [address] URINE AND STOOL UA Ketones Negative mg/dL Negative mg/dL 11/30/[address] [facility] [address] URINE AND STOOL UA Protein Negative mg/dL Negative mg/dL 11/30/[address] [facility] [address] URINE AND STOOL UA Bili Negative *NA* (11/29/14 8:18 PM) Negative 11/30/2014 [facility] URINE AND STOOL UA pH 5.0 5.0 - 8.0 11/30/2014 [facility] URINE AND STOOL UA Color Yellow *NA* (11/29/14 8:18 PM) Yellow 11/30/2014 [facility] URINE AND STOOL UA Turbidity Marked *ABN* (11/29/14 8:18 PM) Clear 11/30/2014 [facility] URINE AND STOOL UA Spec Grav 1.023 <=1.030 11/30/2014 [facility] CHEM PANEL eGFR 57 11/30/2014 Result Comment: [...] should be multiplied by the estimated BMI. [facility] CHEM PANEL Creatinine Lvl 1.1 0.5 - 1.4 11/30/2014 [facility] CHEM PANEL BUN 20 7 - 22 11/30/2014 [facility] CHEM PANEL CO2 22 24 - 32 11/30/2014 [facility] CHEM PANEL Total Protein 8.3 6.4 - 8.4 11/30/2014 [facility] CHEM PANEL AST 18 0 - 37 11/30/2014 [facility] CHEM PANEL ALT 45 0 - 65 [...] HEMATOLOGY Lymphocytes 8.6 20.0 - 40.0 11/30/2014 [facility] HEMATOLOGY Segs 86.4 45.0 - 75.0 11/30/2014 [facility] HEMATOLOGY Monocytes 4.5 2.0 - 12.0 11/30/2014 [facility] HEMATOLOGY Basophils # 0.1 0.0 - 0.2 11/30/2014 [facility] HEMATOLOGY Eosinophils 0.1 0.0 - 4.0 11/30/2014 [facility] HEMATOLOGY Segs-Bands # 14.9 1.5 - 8.1 11/30/2014 [facility] HEMATOLOGY Basophils 0.4 0.0 - 1.0 11/30/2014 [facility] Monocytes # 0.8 0.0 - 0.8 11/30/2014 [facility] Lymphocytes # 1.5 1.0 - 5.5 11/30/2014 [facility] Pathology Reports No Data Provided for This Section Diagnostic Reports Report Value Date Source Breast Mammo Scrn MAGNUS incl CAD MA BILATERAL DIGITAL SCREENING MAMMOGRAM WITH CAD: 04/07/2018 CLINICAL: Routine screening Z12.31. Current study was evaluated with a Computer Aided Detection (CAD) system. COMPARISON:Comparison is made to exams dated: 03/27/2016 mammogram, 09/24/2014 mammogram, 05/07/2013 mammogram, 04/18/2008 mammogram, 05/05/2006 mammogram - [facility], and 05/19/2004. TECHNIQUE: Mammographic views were obtained using digital acquisition. [employer] Version 1.3 was utilized for computer aided [...] is recommended.(04/08/2019) This exam was interpreted at [id number] for [facility] Breast [place]. Óscar liu/kari:04/07/2018 10:34:00 Utility Manager(s): Malika Saunders, [facility] letter sent: BI-RADS 1/2 Mammogram BI-RADS: 2 Benign 04/07/2018 [facility] Digital Mammo Screening Magnus MA - DIGITAL MAMMO SCREENING MAGNUS MA BILATERAL DIGITAL SCREENING MAMMOGRAM WITH CAD: 03/27/2016 CLINICAL: Routine. Current study was evaluated with a Computer Aided Detection (CAD) system. Comparison is made to exams dated: 09/24/2014 mammogram, 05/07/2013 mammogram, 04/18/2008 mammogram, 05/05/2006 mammogram - [facility] and 05/19/2004. The tissue of both [...] screening mammogram is recommended. Óscar liu/penrad:03/27/2016 11:27:47 Utility Manager: Chrissie Mcgregor, [facility] This exam was dictated and interpreted by [id number] for [facility] Breast [place]. letter sent: Normal exam Mammogram BI-RADS: 2 Benign 03/27/2016 [facility] Bone Density Scan Patient Name : ADOLFO MARIANO : 1960; Age: 55 years y/o Female MR: [id number] Study: Bone Density Scan 03/27/2016 10:10 AM [employer] MANAGER Clinical Indication: osteoporosis. COMPARISON: 05/07/2013. FINDINGS: The [...] standard deviations below peak bone mass. SL: [id number] 03/27/2016 [facility] Abdomen/Pelvis wo IV contrast CT HISTORY: Acute [...] to 3 mm right UVJ calculus. SL:11/29/2014 [facility] Abdomen RUQ US HISTORY: Acute abdominal pain. Gallbladder normal. Liver: Normal. Common bile duct 5 mm, normal Pancreas not well-seen. Right kidney with hydronephrosis. No upper abdominal fluid collection otherwise. IMPRESSION: Right hydronephrosis. No acute right upper quadrant finding otherwise. SL:11/29/2014 [facility] Hip bilat w pelvis and both lat [...] abnormalities of the pelvis or hips. SL:09/24/2014 [facility] Knee 3 Views Bilateral DX Bila teral knees 2 views: There are no significant osseous, articular or soft tissue abnormalities. IMPRESSION: No significant radiographic abnormalities of the knees. SL:09/24/2014 [facility] Hand 3 views Bilateral DX Bila teral [...] abnormalities in the hands or wrists. SL:09/24/2014 [facility] Digital Mammo Screening [facility] MA - DIGITAL MAMMO SCREENING MAGNUS MA BILATERAL DIGITAL SCREENING MAMMOGRAM WITH CAD: 09/24/2014 CLINICAL: Routine. Current study was evaluated with a Computer Aided Detection (CAD) system. Comparison is made to exams dated: 05/07/2013 mammogram, 04/18/2008 mammogram, 05/05/2006 mammogram - [facility] and 05/19/2004. The tissue of both [...] screening mammogram is recommended. Óscar liu/kari:09/26/2014 08:09:38 Utility Manager: Suad Wagoner, [facility] This exam was dictated and interpreted by [id number] for [facility] Breast [place]. letter sent: Normal exam Mammogram BI-RADS: 2 Benign 09/24/2014 [facility] Spine cervical 2 or 3 view DX HISTORY: Neck pain. Cervical spine 2 views. No fracture subluxation or acute abnormality. Mild endplate degenerative changes, osteophytes at C4-C5 IMPRESSION: No acute findings. Mild C4-C5 degenerative changes. SL:13 02/08/2014 [facility] Bone Density Scan BONE DENSITY : TECHNIQUE: [...] below peak bone mass. SL: 12 05/07/2013 [facility] Digital Mammo Screening [facility] MA - DIGITAL MAMMO SCREENING MAGNUS MA BILATERAL DIGITAL SCREENING MAMMOGRAM WITH CAD: 05/07/2013 CLINICAL: Other Screening Mammogram. Current study was evaluated with a Computer Aided Detection (CAD) system. Comparison is made to exams dated: 04/18/2008 mammogram, 05/05/2006 mammogram - [facility] and 05/19/2004. The tissue of both [...] one year is recommended. Óscar liu/penrad:05/10/2013 08:21:27 Utility Manager: Malika Saunders, [facility] This exam was dictated and interpreted by [id number] at [facility], 13. letter sent: Normal exam Mammogram BI-RADS: 2 Benign 05/07/2013 [facility] Consultation Notes No Data Provided for This [...] Group Temperature Oral (F) 98 F 11/30/2014 [facility] Heart Rate 78 11/30/2014 [facility] Respitory Rate 18 11/30/2014 [facility] Systolic (mm Hg) 135 11/30/2014 [facility] Diastolic (mm Hg) 74 11/30/2014 [facility] BMI Calculated 30.97 11/29/2014 [facility] Weight 69.545 11/29/2014 [facility] Heart Rate 83 11/29/2014 [facility] Systolic (mm Hg) 151 11/29/2014 [facility] Diastolic (mm Hg) 79 11/29/2014 [facility] Height 149.86 cm 11/29/2014 [facility] Respitory Rate 18 11/29/2014 [facility] Temperature Oral (F) 98.3 F 11/29/2014 [facility] Encounters Location Location Details Encounter Type Encounter Number Reason For Visit Attending Provider ADM Date DC Date Status Source [facility] Outpatient [id number] Tono Lauren 05/07/2013 05/08/2013 [facility] Out[facility] [id number] Penelope Lauren 09/24/2014 09/25/2014 [facility] Outpatient [id number] PENELOPE LAUREN 11/03/2014 Active [facility] [id number] NURSE VISIT 11/14/2014 Active [facility] Out[facility] [id number] PENELOPE LAUREN 11/21/2014 Active [facility] [place] Outpatient [id number] PENELOPE LAUREN 11/28/2014 Active [facility] [id number] Romi Guzmanooqi 11/29/2014 11/30/2014 [facility] Outpatient [id number] PENELOPE LAUREN 03/24/2015 Active [facility] [place] Outpatient [id number] PENELOPE LAUREN 03/30/2015 Active [facility] [id number] PENELOPE LAUREN 04/06/2015 [facility] [place] [facility] [id number] ANNA PRO 05/29/2015 [facility] [place] [facility] [id number] PENELOPE LAUREN 06/26/2015 Active [facility] [place] Out[facility] [id number] PENELOPE LAUREN 08/07/2015 Active [facility] [place] Outpatient [id number] PENELOPE LAUREN 09/18/2015 Active [facility] [id number] PENELOPE LAUREN 11/06/2015 Active [facility] [id number] PENELOPE LAUREN 01/08/2016 [facility] [id number] PENELOPE LAUREN 01/08/2016 Active [facility] [id number] PENELOPE LAUREN 01/29/2016 Active [facility] Outpatient [id number] Penelope Lauren 03/27/2016 03/28/2016 [facility] [id number] PENELOPE LAUREN 06/03/2016 Active [facility] [id number] PENELOPE LAUREN 10/29/2016 Active [facility] [place] Outpatient [id number] TIFFANIE BRADY 12/13/2016 Active [facility] Out[facility] [id number] PENELOPE LAUREN 02/28/2017 Active [facility] Primary Care [facility] Ambulatory Pre-Reg [id number] Penelope Lauren 02/28/2017 02/28/2017 [facility] Out[facility] [id number] PENELOPE LAUREN 03/31/2017 Active [facility] Primary Care [facility] Outpatient [id number] Penelope Lauren 03/31/2017 04/01/2017 [facility] Primary Care [facility] Phone Message [id number] 04/09/2017 04/11/2017 [facility] Outpatient [id number] Penelope Lauren 04/26/2017 04/26/2017 [facility]patient [id number] PENELOPE LAUREN 07/29/2017 Active [facility] Primary Care [facility] Outpatient [id number] Penelope Lauren 07/29/2017 07/30/2017 [facility] Outpatient [id number] PENELOPE LAUREN 12/01/2017 Active [facility] Primary Care [facility] Outpatient [id number] Penelope Lauren 12/01/2017 12/02/2017 [facility] Outpatient [id number] CORNEL TERAN 01/09/2018 Active [facility] Primary Care [facility] Outpatient [id number] Cornel Teran 01/09/2018 01/10/2018 [facility] Outpatient [id number] PENELOPE LAUREN 03/24/2018 Active [facility] Primary Care [facility] Outpatient [id number] Penelope Lauren 03/24/2018 03/25/2018 [facility] Outpatient [id number] Penelope Lauren 04/07/2018 04/08/2018 [facility] Outpatient [id number] PENELOPE LAUREN 04/08/2018 Active [facility] Primary Care [facility] Outpatient [id number] Penelope Lauren 04/08/2018 04/09/2018 [facility] Outpatient [id number] Penelope Lauren 08/05/2018 Active [facility] Primary [facility] [id number] Penelope Lauren 08/05/2018 08/06/2018 [facility] Group [facility] Primary [facility] Phone Message [id number] 08/25/2018 08/27/2018 [facility] Primary [facility] Between Visit [id number] 08/30/2018 08/31/2018 [facility] Group [facility] Internal Medicine [facility] Phone Message [id number] 05/11/2019 05/13/2019 [facility] Group [facility] Internal Medicine [facility] Phone Message [id number] 05/11/2019 05/13/2019 [facility] Group [facility] Internal Medicine [facility] Phone Message [id number] 05/13/2019 05/15/2019 [facility] Outpatient [id number] Penelope Deirdre 05/21/2019 Active [facility] Internal Medicine [facility] Ambulatory Pre-Reg [id number] Penelope Deirdre 05/21/2019 05/21/2019 [facility] Outpatient [id number] Penelope Deirdre 05/24/2019 Active [facility] Outpatient [id number] Penelope Deirdre 05/24/2019 05/25/2019 Medical [facility] Procedures Procedure Code Date Perfomer Comments Source Mammogram<sup>1</sup> [id number] 04/07/2018 :There is no mammographic evidence of malignancy. A 1 year screening mammogram is recommended.(04/08/2019) [facility] Bone density scan<sup>1</sup> [id number] 03/27/2016 Previous dexa: Normal to new dexa: osteopenia left femoral neck [facility] Mammogram [id number] 03/27/2016 [facility] Bone density scan<sup>2</sup> [id number] 03/27/2016 Previous dexa: Normal to new dexa: osteopenia left femoral neck [facility] Cardiovascular stress test using treadmill<sup>2</sup> [id number] 01/17/2015 Per patient it was normal. Dr Mireles [facility] Cardiovascular stress test using treadmill<sup>3</sup> [id number] 01/17/2015 Per patient it was normal. Dr Mireles [facility] Echocardiography<sup>3</sup> 4 [id number] 01/09/2015 Dr Fanta Montoya mild concentricular hypertrophy [facility] Echocardiography<sup>4</sup> 4 [id number] 01/09/2015 Dr Fanta Montoya mild concentricular hypertrophy [facility] Eye examination [id number] 12/18/2013 [facility] Colonoscopy<sup>4</sup> [id number] 01/18/2012 Next 5 years [facility] Endoscopy<sup>5</sup> [id number] 01/18/2012 Gastritis [facility] Colonoscopy<sup>2</sup> [id number] 01/18/2012 Next 5 years [facility] Endoscopy<sup>3</sup> [id number] 01/18/2012 Gastritis [facility] Colonoscopy<sup>5</sup> [id number] 01/18/2012 Next 5 years [facility] Endoscopy<sup>6</sup> [id number] 01/18/2012 Gastritis [facility] section<sup>6</sup> 1 [id number] x2 [facility] section<sup>4</sup> 1 [id number] x2 [facility] section<sup>7</sup> 1 [id number] x2 [facility] Assessment and Plan No Data [...] Cessation Counseling No entered on: 08/05/18 11/03/2014 [facility] Social History TypeResponse Alcohol Current, Type Beer. Frequency: 1-2 times per month. Smoking Status Current some day smoker; Lives with someone who smokes; Cigarette Smoking Last 365 Days Yes; Reg Smoking Cessation Counseling No entered on: 04/08/18 11/03/2014 [facility] Family History No Data Provided for This Section Advance Directives No Data Provided for This Section Functional Status No Data Provided for This Section
--- OUTSIDE RECORDS SUMMARY | 2019-07-31 01:20 | XMS REPORT | Continuity of Care Document ---
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 Name Role Phone Rosalino SAVAGE Attphys Unavailable DeirdreDeidre thomas Attphys Cornel Ye Attphys KarenJeovanny qureshi Romi Attphys Problems Condition Name Condition Details Condition Category Status Onset Date Resolution Date Last Treatment Date Treating Clinician Comments Source MAMMO SCREENING CHRISTOPHER MAMM O SCREENING CHRISTOPHER Active 03/30/2018 [facility] Active 2018-03-30 00:00:00 2018-04-08 10:54:00 [facility] SCRE ENING MAMMO Active 04/03/2017 [facility] Active 2017-04-03 00:00:00 2017-05-27 16:19:00 Bear Herrera DX: Z12.39=ENCOUNTER FOR OTHER SCREENING DX: Z12.39=ENCOUNTER FOR OTHER SCREENING Active 02/21/2016 [facility] Active 2016-02-21 00:00:00 2016-03-27 09:50:00 [facility] Javier FIRST NIGHT-56949 FIRS T NIGHT-29121 Active 04/26/2015 [facility] Active 2015-04-26 00:00:00 2015-06-12 16:18:00 Bear Herrera FLANK PAIN /OTHER FLAN K PAIN /OTHER Active 11/29/2014 [facility] Active 2014-11-29 00:00:00 2014-11-29 20:24:00 Bear Herrera E78.0 E78. 0 Active 11/23/2014 [facility] Active 2014-11-23 00:00:00 2015-01-19 15:46:00 [facility] [place]per[place] SCREENING SCRE ENING Active 09/16/2014 [facility] Active 2014-09-16 00:00:00 2015-04-14 10:08:00 [facility] Body mass index 30+ - obesity (finding) Body mass index 30+ - obesity (finding) Active 02/28/2014 Problem 05/26/2019 Data migrated from [employer] on 07/16/14. [facility] Problem Activ e 2014-02-28 00:00:00 2019-05-26 22:32:10 [facility] Vitamin D deficiency (disorder) Vitamin D deficiency (disorder) Active 02/28/2014 Problem 08/02/2017 Data migrated from [employer] on 08/24/14.Data migrated from [employer] on 07/19/14.Data migrated from [employer] on 07/16/14. Medical [facility] Problem Active 2014-02-28 00:00:00 2017-08-02 11:31:34 [facility] PSOTMENOPOSAL PSOT MENOPOSAL Active 04/22/2013 [facility] Active 2013-04-22 00:00:00 2013-05-07 07:41:00 [facility] Multiple joint pain (finding) Multiple joint pain (finding) Active 04/21/2013 Problem 05/26/2019 Data migrated from [employer] on 07/16/14. Medical [facility] Problem Active 2013-04-21 00:0 0:00 2019-05-26 22:32:10 [facility] Urinary incontinence (finding) Urinary incontinence (finding) Active 04/21/2013 Problem 05/26/2019 Data migrated from [employer] on 07/16/14. Medical [facility] Problem Active 2013-04-21 00:0 0:00 2019-05-26 22:32:10 [facility] Hypercholesterolemia (disorder) Hypercholesterolemia (disorder) Active 12/25/2012 Problem 03/30/2016 Data migrated from [employer] on 08/24/14.Data migrated from [employer] on 07/19/14. [facility] Active 2012-12-25 00:00:00 2016-03-30 01:21:37 alessandra [place] Impaired glucose tolerance (disorder) Impaired glucose tolerance (disorder) Active 12/25/2012 Problem 03/30/2016 Data migrated from [employer] on 08/24/14. [facility] Active 2012-12-25 00:00: 00 2016-03-30 01:21:37 [facility] Encounter for screening mammogram for malignant neopla sm of breast Encounter for screening mammogram for malignant neoplasm of breast 04/09/2018 [facility] Problem 2018-04-09 23:36:12 [facility] Osteopenia (disorder) Oste openia (disorder) Active Problem 05/26/2019 [facility] Problem Active 2019-05-26 22:32:10 [facility] Prediabetes (finding) Pred iabetes (finding) Active Problem 05/26/2019 [facility] Problem Active 2019-05-26 22:32:10 [facility] Sleep apnea (finding) Slee p apnea (finding) Active Problem 05/26/2019 [facility] Problem Active 2019-05-26 22:32:10 [facility] Decreased vitamin D (finding) Decreased vitamin D (finding) Active Problem 05/26/2019 [facility] Problem Active 2019-05-26 22:32:10 [facility] Mixed hyperlipidemia (disorder) Mixed hyperlipidemia (disorder) Active Problem 05/26/2019 [facility] Problem Active 2019-05-26 22:32:10 [facility] Hyperlipidemia (disorder) Hype rlipidemia (disorder) Active Problem 08/02/2017 [facility] Problem Active 2017-08-02 11:31:34 [facility] Benign hypertension (disorder) Benign hypertension (disorder) Active Problem 03/30/2016 [facility] Problem Active 2016-03-30 01:21:37 [facility] Bronchitis (disorder) Bron chitis (disorder) Active Problem 03/30/2016 [facility] Problem Active 2016-03-30 01:21:3 7 [facility] Family tension (finding) Fami ly tension (finding) Active Problem 05/26/2019 [facility] Problem Active 2019-05-26 22: 32:10 [facility] XRAY XRAY Active [facility] Diagnosis Active 2014-02-08 11:19:00 [facility] Discharge Diagnosis: Calculus of kidney with calculus of ureter Discharge Diagnosis: Calculus of kidney with calculus of ureter 11/29/2014 12/03/2014 [facility] 2014-11-29 05:00:00 2014 11:39:30 2014-12-03 11:39:30 [facility] Allergies, Adverse Reactions, Alerts Allergy Name Allergy Type Status Severity Reaction(s) Onset Date Inacti ve Date Treating Clinician Comments Source No Known Medication Allergies No Known Medication Allergies Active [facility] Social History Social Habit Start Date Stop Date Quantity Comments Source Social History 2014-11-03 17:37:28 2014-11-03 17:37:28 [facility] Medications Ordered Medication Name Filled Medication Name Start Date Stop Da te Current Medication? Ordering Clinician Indication Dosage Frequency Signature (SIG) Comments Components Source Clotrimazole 10 MG/ML Topical Cream 2019-05-24 15:23:00 Yes 1 appl, TOP, BID, apply to affected area for 2 to 4 weeks, X 7 day, # 15 gm, 1 Refill(s), Pharmacy: [address] benzonatate 100 MG Oral Capsule [Tessalon Perles] 2019-05-24 15:21:00 Yes 100 mg = 1 cap, PO, Q12H, X 14 day, # 28 cap, 0 Refill(s), Pharmacy: [address] atorvastatin 20 mg oral tablet 2019-05-24 15:18:00 Yes = 1 tab, PO, Bedtime, # 90 tab, 1 Refill(s), Pharmacy: [facility] [address] [place] [address] atorvastatin 20 mg oral tablet 2018-08-30 15:08:12 Yes = 1 tab, PO, Bedtime, # 90 tab, Refill(s) 1, Pharmacy: [address] benzonatate 100 MG Oral Capsule [Tessalon Perles] 2018-08-25 17:42:00 Yes 100 mg = 1 cap, PO, BID, X 14 day, # 28 cap, 0 Refill(s), Pharmacy: [facility] [address] [place] [address] Betamethasone 0.5 MG/ML / Clotrimazole 10 MG/ML Topical Crea m 2018-08-25 17:42:00 Yes 1 appl, TO P, BID, X 14 day, # 45 gm, 1 Refill(s), Pharmacy: [facility] [address] [place] [address] levocetirizine dihydrochloride 5 MG Oral Tablet [Xyzal] 2018-08-05 14:31:00 Yes 5 mg = 1 tab, P O, QPM, # 30 tab, 0 Refill(s), Pharmacy: [facility] [address] [place] [address] ciprofloxacin 500 mg oral tablet 2018-03-24 16:15:00 No 500 mg = 1 tab, PO, Q12H, X 7 day, # 14 tab, 0 Refill(s), Pharmacy: [facility] [address] [place] [address] cefdinir 300 MG Oral Capsule 2018-01-09 18:10:00 No 300 mg = 1 cap, PO, Q12H, X 5 day, # 10 cap, 0 Refill(s), Pharmacy: [facility] [address] [place] [address] atorvastatin 10 mg oral tablet 2017-12-02 02:30:25 No 10 mg = 1 tab, PO, Bedtime, # 90 tab, 1 Refill(s), Pharmacy: [facility] [address] [place] [address] atorvastatin 10 mg oral tablet 2017-07-31 02:24:00 Yes 10 mg = 1 tab, PO, Bedtime, # 90 tab, 1 Refill(s), Pharmacy: [facility] [address] [place] [address] nitrofurantoin macrocrystals 100 mg oral capsule (Macrodanti n) 2017-04-11 03:22:00 No 100 mg = 1 cap, PO, QID, X 7 day, # 28 cap, 0 Refill(s), Pharmacy: [facility] [address] [place] [address] Acetic Acid 20 MG/ML Otic Solution 2017-04-10 03:24:00 No 5 drp, BOTH EARS, TID, X 7 day, # 15 ml, 0 Refill(s), Pharmacy: [facility] [address] [place] [address] Sulfamethoxazole 800 MG / Trimethoprim 160 MG Oral Tablet [B actrim] 2017-04-08 13:48:00 No 1 tab, PO, BID, X 5 day, # 10 tab, 0 Refill(s), Pharmacy: [facility] [address] [place] [address] Ondansetron 4 MG Disintegrating Tablet [Zofran] 2014-11-30 04:19 :00 Yes Special Instructions: Dissolve tab under tongue [facility] Tamsulosin hydrochloride 0.4 MG Oral Capsule [Flomax] 2014-11-30 04:19:00 Yes 0.4 mg = 1 cap, PO, Daily, # 7 cap, 0 Re fill(s) [facility] Morphine 2014-11-30 04:12:00 No 4 mg, Route: IVP, ONCE, Dosing Weight 69.545, kg, Start date: 11/29/14 23:12:00, Stop date: 11/29/14 23:12:00 Bear Herrera ketOROLAC 30 mg/mL injectable solution 2014-11-30 04:04:00 No 30 mg, Route: IV, ONCE, Dosing Weight 69.545, kg, Start date: 11/29/14 23:04:00, Stop date: 11/29/14 23:04:00 Bear Herrera Sodium Chloride 0.154 MEQ/ML Injectable Solution 2014-11-30 01:0 6:00 No 1,000 mL, 1,000 ml/hr, Infus e Over: 1 hr, Route: IV, ONCE, Priority: STAT, Dosing Weight 69.545 kg, Start date: 11/29/14 20:06:00, Duration: 1 doses or times, Stop date: 11/29/14 20:06:00 Velasquez Herrera Zofran 2014-11-30 01:05:00 No 4 mg, Route: IVP, Drug form: INJ, ONCE, Dosing Weight 69.545, kg, Priority: STAT, Start date: 11/29/14 20:05:00, Stop date: 11/29/14 20:05:00 Bear valenzuela Dilaudid 2014-11-30 01:05:00 No 1 mg, Route: IV, ONCE, Dosing Weight 69.545, kg, Start date: 11/29/14 20:05:00, Stop date: 11/29/14 20:05:00 [facility] Vital Signs Vital Name Observation Time Observation Value Comments Source BMI Calculated 2018-08-05 13:54:00 Gonzalez Joyner Weight 2018-08-05 13:54:00 [facility] Height 2018-08-05 13:54:00 149.86 cm [facility] Temperature Oral (F) 2018-08-05 13:54:00 98.2 F [facility] Systolic (mm Hg) 2018-08-05 13:54:00 Velasquezsofía Herrera Diastolic (mm Hg) 2018-08-05 13:54:[address] [facility] cesilia Herrera Heart Rate 2018-08-05 13:54:00 [facility] Respitory Rate 2018-08-05 13:54:00 [facility] [place] Height 2018-04-08 16:23:00 154.94 cm [facility] [place] BMI Calculated 2018-04-08 16:23:00 [facility] [place] Weight 2018-04-08 16:23:00 [facility] [place] Temperature Oral (F) 2018-04-08 16:23:00 97.9 F [facility] [place] Respitory Rate 2018-04-08 16:23:00 [facility] [place] Heart Rate 2018-04-08 16:23:00 [facility] [place] Systolic (mm Hg) 2018-04-08 16:23:00 Velasquez rial Javier Diastolic (mm Hg) 2018-04-08 16:23:00 Mem o[facility] Javier BMI Calculated 2018-03-24 15:28:00 [facility] [place] Weight 2018-03-24 15:28:00 [facility] Height 2018-03-24 15:28:00 152.4 cm [facility] Temperature Oral (F) 2018-03-24 15:28:00 97.6 F [facility] Respitory Rate 2018-03-24 15:28:00 [facility] [place] Heart Rate 2018-03-24 15:28:00 [facility] [place] Systolic (mm Hg) 2018-03-24 15:28:00 Velasquez rial Javier Diastolic (mm Hg) 2018-03-24 15:28:00 Mem o[facility] [place] Height 2018-01-09 17:57:00 154.94 cm [facility] Temperature Oral (F) 2018-01-09 17:57:00 97.9 F [facility] [place] Respitory Rate 2018-01-09 17:57:00 Memori [facility] Javier Heart Rate 2018-01-09 17:57:00 [facility] Systolic (mm Hg) 2018-01-09 17:57:00 Velasquez rial [place] Diastolic (mm Hg) 2018-01-09 17:57:00 Mem o[facility] BMI Calculated 2018-01-09 17:57:00 [facility] [place] Weight 2018-01-09 17:57:00 [facility] Height 2017-12-01 14:29:00 157.48 cm [facility] BMI Calculated 2017-12-01 14:29:00 [facility] [place] Weight 2017-12-01 14:29:00 [facility] [place] Heart Rate 2017-12-01 14:29:00 [facility] Temperature Oral (F) 2017-12-01 14:29:00 97.8 F [facility] Respitory Rate 2017-12-01 14:29:00 [facility] Systolic (mm Hg) 2017-12-01 14:29:00 Velasquez rial Javier Diastolic (mm Hg) 2017-12-01 14:29:00 Mem orial [place] Temperature Oral (F) 2017-07-29 14:34:00 98.7 F [facility] Respitory Rate 2017-07-29 14:34:00 [facility]ori al [place] Heart Rate 2017-07-29 14:34:00 [facility] Systolic (mm Hg) 2017-07-29 14:34:00 Velasquez rial Javier Diastolic (mm Hg) 2017-07-29 14:34:00 Mem o[facility] Javier Height 2017-07-29 14:34:00 149.86 cm [facility] [place] Weight 2017-07-29 14:34:00 [facility] [place] BMI Calculated 2017-07-29 14:34:00 [facility] Weight 2017-03-31 17:13:00 [facility] [place] BMI Calculated 2017-03-31 17:13:00 [facility]avier Systolic (mm Hg) 2017-03-31 17:13:00 Velasquez rial Javier Diastolic (mm Hg) 2017-03-31 17:13:00 Mem orial [place] Height 2017-03-31 17:13:00 149.86 cm [facility] Temperature Oral (F) 2017-03-31 17:13:00 97.6 F [facility] [place] Respitory Rate 2017-03-31 17:13:00 [facility]ori [facility] Javier Heart Rate 2017-03-31 17:13:00 [facility] [place] Temperature Oral (F) 2014-11-30 05:29:00 98 F [facility] Heart Rate 2014-11-30 05:29:00 [facility] [place] Respitory Rate 2014-11-30 05:29:00 [facility] Systolic (mm Hg) 2014-11-30 05:29:00 Velasquez rial Javier Diastolic (mm Hg) 2014-11-30 05:29:00 Mem [facility] Javier BMI Calculated 2014-11-29 22:49:00 [facility] Weight 2014-11-29 22:49:00 [facility] [place] Heart Rate 2014-11-29 22:49:00 [facility] Systolic (mm Hg) 2014-11-29 22:49:00 Velasquez yanes Javier Diastolic (mm Hg) 2014-11-29 22:49:00 Lucas orial Javier Height 2014-11-29 22:49:00 149.86 cm [facility] [place] Respitory Rate 2014-11-29 22:49:00 Gonzalez gonsalez Javier Temperature Oral (F) 2014-11-29 22:49:00 98.3 F Bear Herrera Procedures Procedure Date / Time Performed Performing Clinician Shelly patel Mammogram<sup>1</sup> 2018-04-07 06:00:00 Lucaslillie wallace Herrera Mammogram 2016-03-27 06:00:00 Bear jose Bone density scan<sup>2</sup> 2016-03-27 06:00:00 Bear Herrera Cardiovascular stress test using treadmill<sup>3</sup> 00:00:00 Bear Herrera Echocardiography<sup>4</sup> 2015-01-09 06:00:00 [facility] Javier Eye examination 2013-12-18 00:00:00 Bear garcia Colonoscopy<sup>5</sup> 2012-01-18 00:00:00 Velasquez yanes Javier Endoscopy<sup>6</sup> 2012-01-18 00:00:00 Gonzalez Joyner section<sup>7</sup> Lucas lomas Javier Encounters Start Date/Time End Date/Time Encounter Type Admission Type Attendi [facility] Care Department Encounter ID Source 2019-05-24 10:00:00 2019-05-24 23:59:59 Outpatient Kavita Gilmore [facility] [id number] 2019-05-21 08:30:00 2019-05-21 08:30:00 Outpatient Kavita Gilmore [facility] [id number] 2019-05-13 15:17:34 2019-05-14 23:59:59 Outpatient [facility] [id number] 2019-05-11 12:02:29 2019-05-12 23:59:59 Outpatient [facility] [id number] 2019-05-11 12:01:32 2019-05-12 23:59:59 Outpatient [facility] [id number] 2018-08-30 10:07:36 2018-08-31 10:07:36 Outpatient [facility] [id number] 2018-08-25 08:52:46 2018-08-26 23:59:59 Outpatient [facility] MG [id number] 2018-08-05 09:00:00 2018-08-05 23:59:59 Outpatient Kavita Gilmore [facility] [place] [id number] 2018-04-08 10:00:00 2018-04-08 23:59:59 Outpatient Kavita Gilmore [facility] [place] [id number] 2018-04-07 09:20:00 2018-04-07 23:59:00 Outpatient Kavita Gilmore [facility] [id number] 2018-03-24 11:45:00 2018-03-24 23:59:59 Outpatient Kavita Gilmore [facility] [place] [id number] 2018-03-24 11:45:00 2018-03-24 23:59:59 [facility] [id number] 2018-01-09 11:45:00 2018-01-09 23:59:59 Outpatient Cornel Ye [facility] [id number] 2017-12-01 09:15:00 2017-12-01 23:59:59 [facility] [id number] 2017-07-29 09:15:00 2017-07-29 23:59:59 [facility] [id number] 2017-04-26 12:00:00 2017-04-26 12:00:00 Outpatient Kavita Gilmore [facility] [id number] 2017-04-09 09:19:00 2017-04-10 23:59:59 Outpatient [facility] [id number] 2017-03-31 11:00:00 2017-03-31 23:59:59 [facility] [id number] 2017-02-28 10:30:00 2017-02-28 10:30:00 [facility] [id number] 2017-02-28 10:30:00 2017-02-28 10:30:00 Outpatient Kavita Gilmore [facility] [id number] 2017-02-28 10:30:00 2017-02-28 10:30:00 Outpatient Kavita Gilmore [facility] [id number] 2016-03-27 09:50:00 2016-03-27 23:59:00 Outpatient Kavita Gilmore [facility] [id number] 2014-11-29 17:28:00 2014-11-30 00:31:00 Outpatient Romi Jones [facility] [id number] 2014-09-24 10:13:00 2014-09-24 23:59:00 Outpatient Kavita Gilmore [facility] [id number] 2013-05-07 07:30:00 2013-05-07 23:59:00 Outpatient Kavita Gilomre [facility] [id number] Results Test Description Test Time Test Comments Results Result Comments Source CT ABDOMEN/PELVIS WO 2019-07-30 23:52:00 [place] [address] Patient Name: ADOLFO MARIANO MR #: [id number] : 1960 Age/Sex: 58/F Req #: [id number] Adm Physician: Ordered by: RAUL SAVAGE MD Report #: [id number] Location: ER Room/Bed: Procedure: [id number] CT/CT ABDOMEN/PELVIS WO Exam Date: 07/30/19 Exam Time: 0 REPORT STATUS: Signed EXAM: CT Abdomen and Pelvis WITHOUT contrast INDICATION: left flank pain, stone protocol [id number] Y COMPARISON: None. TECHNIQUE: Abdomen and pelvis were scanned utilizing a multidetector helical scanner from the lung base to the pubic symphysis without administration of IV contrast. Absence of intravenous contrast decreases sensitivity for detection of focal lesions and vascular pathology. Coronal and sagittal reformations were obtained. Routine protocol was performed. IV CONTRAST: None ORAL CONTRAST: Water COMPLICATIONS: None RADIATION DOSE: Total DLP: 579.37 mGy*cm Estimated effective dose: (DLP x 0.015 x size factor) mSv CTDIvol has been reviewed. It is below the limits set by the Radiation Protocol Committee (RPC). FINDINGS: LINES and TUBES: None. LOWER THORAX: Mild dependent atelectasis, right greater than left. HEPATOBILIARY: Unenhanced liver is unremarkable. No biliary ductal dilation. GALLBLADDER: No radio-opaque stones or sludge. No wall thickening. SPLEEN: No splenomegaly. PANCREAS: No focal masses or ductal dilatation. ADRENALS: No adrenal nodules KIDNEYS/URETERS: 3 mm left renal superior pole calculus. Mild left hydroureteronephrosis, caused by a 3 mm left ureterovesical junction calculus. Minimal left perinephric fat stranding. No right renal calculus. No right hydronephrosis. GI TRACT: No abnormal distention, wall thickening, or evidence of bowel obstruction. Few scattered colonic diverticula without evidence of diverticulitis. Appendix is not visualized. PELVIC ORGANS/BLADDER: Bladder is under distended. Left ureterovesical junction calculus as described above. LYMPH NODES: No lymphadenopathy. VESSELS: Unremarkable. PERITONEUM / RETROPERITONEUM: No free air or fluid. BONES: Minimal retrolisthesis of L5 in relation to L4. No suspicious osseous lesions. SOFT TISSUES: Unremarkable. IMPRESSION: 1. 3 mm left ureterovesical junction calculus with mild left hydroureteronephrosis. 2. 3 mm left renal superior pole nonobstructive calculus. Signed by: Dr. Carlos Nelson MD on 07/30/2019 11:59 PM Di ctated By: CARLOS NELSON MD [id number] Transcribed By: GAGANDEEP on 07/30/19 [id number] COPY TO: RAUL SAVAGE MD URINE AND STOOL 2014-11-30 01:18:00 3 [facility] URINE AND STOOL 2014-11-30 01:18:00 Negative (11/29/14 8:1 8 PM) [facility] URINE AND STOOL 2014-11-30 01:18:00 Negative (11/29/14 8:1 8 PM) [facility] URINE AND STOOL 2014-11-30 01:18:00 >182 [facility] URINE AND STOOL 2014-11-30 01:18:00 Large *ABN*(11/29/14 8 :18 PM) [facility] URINE AND STOOL 2014-11-30 01:18:00 Negative *NA*(11/29/14 8:18 PM) [facility] [place] URINE AND STOOL 2014-11-30 01:18:00 5.0 [facility] [place] URINE AND STOOL 2014-11-30 01:18:00 Yellow *NA*(11/29/14 8 :18 PM) [facility] URINE AND STOOL 2014-11-30 01:18:00 Marked *ABN*(11/29/14 8:18 PM) [facility] URINE AND STOOL 2014-11-30 01:18:00 1.023 [facility] [place] CHEM PANEL 2014-11-30 00:47:00 57 [facility] CHEM PANEL 2014-11-30 00:47:00 1.1 [facility] [place] CHEM PANEL 2014-11-30 00:47:00 20 [facility] CHEM PANEL 2014-11-30 00:47:00 22 [facility] CHEM PANEL 2014-11-30 00:47:00 8.3 [facility] [place] CHEM PANEL 2014-11-30 00:47:00 18 [facility] CHEM PANEL 2014-11-30 00:47:00 45 [facility] CHEM PANEL 2014-11-30 00:47:00 0.1 [facility] [place] CHEM PANEL 2014-11-30 00:47:00 3.9 [facility] CHEM PANEL 2014-11-30 00:47:00 113 [facility] [place] CHEM PANEL 2014-11-30 00:47:00 139 [facility] CHEM PANEL 2014-11-30 00:47:00 3.8 [facility] CHEM PANEL 2014-11-30 00:47:00 106 [facility] CHEM PANEL 2014-11-30 00:47:00 138 [facility] CHEM PANEL 2014-11-30 00:47:00 9.0 [facility] CHEM PANEL 2014-11-30 00:47:00 0.9 [facility] CHEM PANEL 2014-11-30 00:47:00 18 [facility] [place] CHEM PANEL 2014-11-30 00:47:00 4.4 [facility] CHEM PANEL 2014-11-30 00:47:00 13.8 [facility] CHEM PANEL 2014-11-30 00:47:00 111 [facility] [place] HEMATOLOGY 2014-11-30 00:47:00 Test Item PTT (test code = PTT) 29.7 s 22.9-35.8 [facility] [id number] 00:47:0013.1[facility] 2014-11-30 00:47:004.53[facility] GydcxbxVFALLPTLTG4377-69-92 00:47:0041.3[facility] TrzbuseQEHVRZLQLH7917-36-62 00:47:0017.2[facility] HetfwpzLCVRATAHJD0507-74-34 00:47:0091.3[facility] CpqdpocOOJKYDYKAI7475-91-49 00:47:0010.0[facility] WISOHAGFFZ3707-37-30 00:47:00* Test Item Value Reference Range Interpretation Comments MCH (test code = MCH) 29.0 pg 27.0-31.0 [facility] KxfpzeuGKVQLWQOVF4370-35-88 00:47:09854Vybhsabk HermannHEMATOLOGY 2014-11-30 00:47:0013.6[facility] LfxmwjcBBUGZLDUVP2871-15-95 00:47:0031.8[facility] AtwdgqjGZWSVLBFAB6471-00-28 00:47:00* Test Item Value Reference Range Interpretation Comments PT (test code = PT) 12.9 s 12.0-14.7 [facility] OlkbnzqVMDXJFACMT5952-91-64 00:47:000.94[facility]ann[facility]MATOLOGY 2014-11-30 00:47:008.6[facility] IppehftDNPCYEMZBZ6519-60-45 00:47:0086.4[facility] GdekjegNYPZNGKYWO2874-71-48 00:47:004.5[facility] BapbcoeSVIXFMKZZI6977-49-57 00:47:000.1[facility] RfnggfhARYGOLHASI7459-09-92 00:47:000.1[facility] BAWUOMIMVS7594-28-54 00:47:0014.9[facility] MykvdqpGWSIZNTHHS7611-43-54 00:47:00 0.4[facility] GgpvqgaXFLNUFTREL8246-35-58 00:47:000.8[facility]ann[facility]MATOLOGY 2014-11-30 00:47:001.5[facility]
[2019-07-31] MEDS: SODIUM CHLORIDE 0.9% 1000ML 1,000 ML IV SCH ×3 (01:29→16:45)
--- NOTE | 2019-07-31 02:00 | NUR ---
PT ADMITTED TO ROOM 284. PT ALERT AND ORIENTED TO NAME, HOSPITAL, SITUATION, AND DIAGNOSIS: UTI, STONES. PT DENIES PAIN AT THIS TIME. SKIN WARM AND INTACT. LAST BM 07/29. DENIES DYSURIA, URINE STRAW COLORED, STRONG ODOR. PT ORIENTED TO ROOM, CALL LIGHT WITHIN REACH, BED LOW AND LOCKED. WILL CONTINUE TO MONITOR.
[2019-07-31] MEDS ORDERED: ATORVASTATIN CA20 MG PO (02:22)
[2019-07-31] MEDS ORDERED: MULTI-VITAMIN1 EACH (02:22)
--- NOTE | 2019-07-31 06:40 | NUR ---
RECEIVED BEDSIDE SHIFT REPORT FROM OFF GOING NURSE. PATIENT IS RESTING IN BED. NO ACUTE DISTRESS NOTED. CARE PROVIDER AT BEDSIDE. CALL LIGHT WITHIN REACH. BED IN THE LOWEST POSITION. BED ALARM ON.
[2019-07-31] MEDS: CEFTRIAXONE SOD 1 GM/NS 50 ML 50 ML IV SCH (11:33)
--- NOTE | 2019-07-31 13:31 | NUR ---
PATIENT OFF UNIT FOR IVP STUDY.
[2019-07-31] MEDS ORDERED: IOPAMIDOL 300MG/ML 100 ML INFUS..BTL IV ONE (13:38)
[2019-07-31] MEDS ORDERED: HYDROCODONE/APAP 5MG-325MG TAB PO PRN (14:15)
[2019-07-31] MEDS ORDERED: DOCUSATE SODIUM 100 MG CAP PO PRN (14:15)
--- NOTE | 2019-07-31 14:20 | NUR ---
PATIENT BACK TO UNIT AT THIS TIME.
--- NOTE | 2019-07-31 14:30 | NUR ---
APPLIED TELE # 3. 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
--- NOTE | 2019-07-31 15:28 | Consultation ---
DATE OF CONSULTATION: 07/31/2019 Urology Consultation. REASON FOR CONSULTATION: Obstructive uropathy. HISTORY OF PRESENT ILLNESS: Lili Carvalho is a 58-year-old woman with a previous history of urolithiasis. The patient has had a kidney stone attack approximately five years ago, went to [facility] at the direction of her primary care physician at that time. The patient followed up with Dr. Donato and no intervention was performed. The patient passed her stone. The patient has not felt the need to follow up since then. The patient denies any hematuria or dysuria until last night when she noted gross hematuria and she has had some left flank pain. The emergency room was busy and the patient went to urinate without a filter in the emergency room and thinks it is possible that she has passed her stone. Her pain is better but she still feels some twinge in the left lower quadrant. The patient denies problems with recurrent urinary tract infections. The patient also had leukocytosis and was subsequently admitted. PAST MEDICAL AND SURGICAL HISTORY: 1. Status post tubal ligation. 2. 5, para 4, spontaneous AB1. 3. Hypercholesterolemia. 4. Chronic back pain. 5. Osteoarthritis. 6. Obesity. ALLERGIES: NONE KNOWN. THE PATIENT DOES NOT LIKE CODEINE. SOCIAL HISTORY: The patient quit smoking. She denies current smoking, ethanol or drug use. 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 FAMILY HISTORY: Noncontributory to the active urological problems, but significant for diabetes mellitus. REVIEW OF SYSTEMS: Discussed as above in history of present illness and past medical history, otherwise negative for all systems. PHYSICAL EXAMINATION: GENERAL: Healthy-appearing, very pleasant 58-year-old woman lying in bed, in no apparent distress. VITAL SIGNS: She is currently afebrile. Vitals are currently stable. Her temperature was 100.3 upon presentation. ABDOMEN: Soft, obese, nondistended. Currently nontender except for some minimal twinge at the left lower quadrant to deep palpation without costovertebral angle tenderness. Kidneys not palpable. For the remaining physical examination systems, please refer to the admission history and physical as well as the ERT sheet. LABORATORY STUDIES: CT scan of the abdomen and pelvis revealed a 3 mm distal left ureteral stone and 3 mm left renal stone and left hydroureteronephrosis. Urine and blood cultures are pending. White blood cell count is 17,030, hemoglobin 13, platelets 336,000. The patient's creatinine is normal at 0.83. The patient's urinalysis showed rbc's and wbc's and many bacteria. Unfortunately, it also showed many epithelial cells and unfortunately catheterized urine culture was not performed prior to the receipt of antibiotics. ASSESSMENT: 1. Left renal colic. 2. Left ureterolithiasis. 3. Left nephrolithiasis. 4. Left hydroureteronephrosis. 5. Obesity. 6. Leukocytosis. 7. Fever that seem to have improved. PLAN: 1. Due to the fact that the patient thinks she may have passed her stone when her urine was not filtered, we will order an IVP. 2. We will continue the patient's IV antibiotics. 3. Continue the patient's IV fluids. 4. Hematological and electrolyte abnormalities per the primary team. 5. The nurse has already been straining all the urine. 6. The patient needs ongoing urological followup, which she was encouraged to do so for stone prevention management. 7. Should the patient not pass her stone, surgical intervention may be warranted. Thank you very much for involving us in care of your patient. We will be happy to follow her along with you as well as an outpatient. MD ELIANA Shah/IVANA /[id number]
--- NOTE | 2019-07-31 15:34 | Diagnostic Imaging Report ---
Exam: Intravenous pyelogram (IVP) TECHNIQUE: Intravenous pyelogram was performed by referring physician/radiology practitioner assistant. Multiple abdominal spot radiographs from the procedure were made available for evaluation. Contrast: 100 cc Isovue-300 COMPARISON: CT abdomen and pelvis 07/30/2019 INDICATION: Evaluate left hydronephrosis and visualized left ureteral stone DISCUSSION: The welt rander radiograph demonstrates a 3 mm linear calcification in the deep pelvis at midline which appears to corresponds to the stone in the distal left ureter when compared to CT from 07/30/2019. Severe degenerative change at L5-S1. Moderate retained stool throughout the colon. Contrast is seen opacifying both collecting system. There is mild mild left hydroureteronephrosis with mild kinking of the proximal left ureter. The right collecting system is unremarkable. Tiny filling defect in the distal left ureter at the ureteral bladder junction likely corresponds with a small stone. Otherwise, no filling defects or wall irregularity of the ureters. Small round opacity overlying the upper myometrium of the left kidney may represent a calcified stone noted on CT abdomen and pelvis. IMPRESSION: 1. Unchanged 3 mm distal left ureteral stone resulting in mild left hydroureteronephrosis. Faintly seen calcified stone in the upper left kidney. 2. Otherwise, unremarkable bilateral collecting system and urinary bladder. 2. Please see procedure report for full details. Signed by: Dr. Jenn Moreira M.D. on 07/31/2019 3:30 PM
--- NOTE | 2019-07-31 19:02 | NUR ---
Bedside shift report given to oncoming nurse. Patient is in stable condition. She is walking to the bathroom. Call light within reach. Bed in the lowest position.
--- NOTE | 2019-07-31 19:34 | NUR ---
Received change of shift report from AM nurse. Walking rounds completed.
[2019-07-31] MEDS: ACETAMINOPHEN 325 MG TAB PO PRN (19:47)
[2019-07-31] MEDS ORDERED: ATORVASTATIN 20 MG TAB PO SCH (21:00)
--- NOTE | 2019-07-31 21:40 | History and Physical ---
CHIEF COMPLAINT: Left flank pain. HISTORY OF PRESENT ILLNESS: A 58-year-old female with morbidly obese, history of chronic nephrolithiasis in the past, has come into the ED with complaints of 5-day history of left flank pain. The patient reports that her flank pain has been persistently getting worse. Of note, yesterday she had significant pain radiating to the left groin area and came into the ED for further evaluation and management. She denies any cough, congestion, or any fever at home. No recent travel. While here, CT imaging consistent with a 3 mm left ureterovesical junction calculus with left hydroureteronephrosis; which likely explains her underlying pain. The patient also reports having some slight hematuria as well. The patient was seen and evaluated at bedside on the medical floor. She is currently doing well with no other issues at this time. REVIEW OF SYSTEMS: Pertinent positive left-sided flank pain with radiation to the left groin area, slight hematuria. The rest of 14-point review of systems have been reviewed with the patient and are negative. ALLERGIES: NO KNOWN DRUG ALLERGIES. HOME MEDICATIONS: Multivitamin, Lipitor. PAST MEDICAL HISTORY: Chronic nephrolithiasis in the past, hyperlipidemia. PAST SURGICAL HISTORY: She has had multiple cystoscopies with stone retrieval. FAMILY HISTORY: Hypertension and diabetes. SOCIAL HISTORY: No drugs. No alcohol. Does not smoke. Good social support. PHYSICAL EXAMINATION: VITAL SIGNS: Temperature is 97.9, pulse 75, respiratory rate is 18, blood pressure is 136/78, and pulse ox 100% on room air. GENERAL: No acute distress. Alert and oriented x3. Cooperative on examination. HEENT: Normocephalic, atraumatic. EYES: Pupils are reactive to light bilaterally. Extraocular movements are intact bilaterally. Throat, no evidence of erythema or exudates in the posterior pharynx. Has poor dentition. NECK: Supple. Good range of motion. PULMONARY: Clear to auscultation bilaterally. No wheezing, no rales, no rhonchi, no crackles appreciated. CARDIOVASCULAR: Positive S1 and S2. No murmurs, rubs, or gallops appreciated. ABDOMEN: Soft, nontender, nondistended to palpation. Bowel sounds present. MUSCULOSKELETAL: Strength was 5/5 throughout. No evidence of any muscles deficits on examination. No weakness appreciated. NEUROLOGICAL: Cranial nerves II through XII grossly intact. No evidence of any neurological deficits on exam. SKIN: Intact. Warm to touch. Good cap refill. PSYCHIATRIC: Normal affect and mood. EXTREMITIES: No edema. Good range of motion throughout. LABORATORY FINDINGS: Show white count 17, hemoglobin 13, hematocrit 41, and platelets of 336. Chemistry; sodium 140, potassium 3.8, chloride 106, bicarb 29, anion gap of 16, BUN 16, creatinine 0.83, glucose 131, calcium 9.5, total bilirubin is 0.3, AST 26, ALT 42, alkaline phosphatase 132, total protein is 8, albumin 4. Urinalysis; greater than 50 wbc's, greater than 50 rbc's, leukocyte esterase trace, nitrite negative, blood was large, 1+ protein. SEROLOGY: Coronavirus PCR pending. MICROBIOLOGY: Blood and urine cultures are pending. IMAGING STUDIES: IVP pending. CT abdomen and pelvis without contrast shows a 3 mm left ureteral fascicular junction calculus with mid left hydroureteronephrosis. There is a 3 mm left renal superior pole nonobstructive calculus. IMPRESSION: 1. Left-sided flank pain with a left ureterovesical junction calculus. 2. Mild left hydroureteronephrosis. 3. Hyperlipidemia. 4. Morbidly obese. PLAN: At this time, she had an IVP performed today ordered by Urology. Continue with pain control. Monitor urine cultures. IV antibiotics. Resume same home medications. Hold anticoagulation due to underlying hematuria from the renal stone. Encourage ambulation. Regular diet. Make n.p.o. after midnight, in the event Urology wants to do any interventions. Continue same plan of care. Monitor closely. Discussed plan of care with nursing staff. MD CHANI Gonzalez/IVANA /[id number]
--- NOTE | 2019-07-31 22:00 | NUR ---
Patient up to bathroom for a shower. Patient c/o pain. Pain meds given as ordered by MD.
[2019-08-01] MEDS: SODIUM CHLORIDE 0.9% 1000ML 1,000 ML IV SCH ×2 (00:45→08:45)
--- NOTE | 2019-08-01 03:24 | NUR ---
Patient resting quitly with no c/o at this time. Continue monitor.
[2019-08-01 04:00] VITALS: BP 120/62
--- NOTE | 2019-08-01 06:50 | NUR ---
RECEIVED BEDSIDE SHIFT REPORT FROM OFF GOING NURSE. PATIENT IS RESTING IN BED. NO ACUTE DISTRESS NOTED. CALL LIGHT WITHIN REACH. BED IN THE LOWEST POSITION.
[2019-08-01 06:51] LABS: BASOPHILS # (AUTO) 0.1 (0.0-0.1); BASOPHILS % 0.5 % (0.0-1.0); EOSINOPHILS # (AUTO) 0.2 (0.0-0.4); EOSINOPHILS % 2.1 % (0.0-6.0); HEMATOCRIT 38.7 % (34.2-44.1); HEMOGLOBIN 12.2 g/dL (12.0-16.0); LYMPHOCYTES # (AUTO) 2.8 (1.0-3.2); LYMPHOCYTES % 28.1 % (18.0-39.1); MEAN CORPUSCULAR HEMOGLOBIN 28.6 pg (28-32); MEAN CORPUSCULAR HGB CONC 31.5 g/dL (31-35); MEAN CORPUSCULAR VOLUME 90.8 fL (81-99); MONOCYTES # (AUTO) 0.9 (0.2-0.8); MONOCYTES % 9.2 % (4.4-11.3); NEUTROPHILS % 59.7 % (38.7-80.0); PLATELET COUNT 275 x10e3/uL (140-360); RED BLOOD COUNT 4.26 x10e6/uL (3.6-5.1); RED CELL DISTRIBUTION WIDTH 13.5 % (11.7-14.4)
[2019-08-01 06:53] LABS: ALANINE AMINOTRANSFERASE 37 IU/L (0-55); ALBUMIN/GLOBULIN RATIO 0.9 (0.8-2.0); ALKALINE PHOSPHATASE 97 IU/L (40-150); ANION GAP 12.9 mmol/L (8-16); BLOOD UREA NITROGEN 9 mg/dL (7-26); BUN/CREATININE RATIO 16 (6-25); CALCIUM 8.6 mg/dL (8.4-10.2); CARBON DIOXIDE 22 mmol/L (22-29); CHLORIDE 113 mmol/L (98-107); CREATININE, SERUM 0.58 mg/dL (0.57-1.11); EST GLOMERULAR FILTRATION RATE > 60 ML/MIN (60-); GLUCOSE 92 mg/dL (74-118); POTASSIUM 3.9 mmol/L (3.5-5.1); SODIUM 144 mmol/L (136-145)
[2019-08-01 08:08] VITALS: BP 139/89
[2019-08-01 08:28] VITALS: BP 139/89
--- NOTE | 2019-08-01 10:00 | NUR ---
PATIENT OFF UNIT FOR PROCEDURE.
[2019-08-01] MEDS ORDERED: IOPAMIDOL 300MG/ML 50ML INFUS..BTL IV ONE (10:15)
[2019-08-01] MEDS ORDERED: B&O 60MG R/S 60 MG SUPP PR ONE (10:16)
[2019-08-01] MEDS ORDERED: ACETAMINOPHEN/CODEINE 300MG - 30MG TAB PO PRN (11:15)
[2019-08-01] MEDS ORDERED: B&O 60MG R/S 60 MG SUPP PR PRN (11:15)
[2019-08-01] MEDS ORDERED: PHENAZOPYRIDINE HCL 100 MG TAB PO PRN (11:15)
[2019-08-01 11:30] VITALS: BP 147/72
--- NOTE | 2019-08-01 11:30 | NUR ---
PATIENT BACK FROM PROCEDURE AT THIS TIME.
[2019-08-01] MEDS: CEFTRIAXONE SOD 1 GM/NS 50 ML 50 ML IV SCH (11:52)
[2019-08-01] MEDS: ACETAMINOPHEN 325 MG TAB PO PRN (11:55)
[2019-08-01] MEDS ORDERED: SEVOFLURANE INHAL SOLN 250 ML PEN BTL ONE (14:27)
[2019-08-01] MEDS ORDERED: PROPOFOL IV EMULSION 10 MG/ML 20 ML VIAL ONE (14:27)
[2019-08-01] MEDS ORDERED: ONDANSETRON HCL INJ 2MG/ML 2ML 2 MG/ML VIAL ONE (14:27)
[2019-08-01] MEDS ORDERED: DEXAMETHASONE SOD PHOS INJ 4 MG/ML VIAL ONE (14:27)
--- NOTE | 2019-08-01 15:30 | NUR ---
RECEIVED DC ORDER FROM MD. PATIENT IS IN STABLE CONDITION. IV LINE TO LEFT ANTECUBITAL DISCONTINUED WITH TIP INTACT, PRESSURE APPLIED TO SITE, NO BLEEDING NOTED. DISCHARGE TEACHING PROVIDED TO PATIENT AND DAUGHTER. DISCHARGE FOLDER WITH PAPERWORK AND PRESCRIPTIONS ON HAND. PATIENT ACCOMPANIED TO PRIVATE AUTO VIA WHEELCHAIR BY STAFF.
--- NOTE | 2019-08-01 16:14 | Discharge Summary ---
FINAL DISCHARGE DIAGNOSES: 1. Left-sided flank pain with left ureterovesical junction calculus, status post cystoscopy, retrograde pyelogram with stone extraction in the left ureteral stent placement performed today, 08/01/2019, by Urology. 2. Probable urinary tract infection. 3. Mild left hydroureteronephrosis. 4. Hyperlipidemia. 5. Morbidly obese. CONSULTANTS: Urology. PHYSICAL EXAMINATION: VITAL SIGNS: Temperature is 98.1, pulse 72, respiratory rate is 18, blood pressure 147/72, and pulse ox 100% on room air. LABORATORY FINDINGS: Show white count 10, hemoglobin 12, hematocrit is 38, and platelets of 275. Chemistry; sodium 144, potassium 3.9, chloride 113, bicarb 22, anion gap of 12, BUN is 9, creatinine is 0.58, glucose 92, and calcium 8.6. Total bilirubin is 0.3, AST 25, ALT 37, and alkaline phosphatase 97. Albumin 3. Urinalysis noted. Serology; coronavirus PCR was pending. Blood cultures, no growth to date. Urine cultures were contaminant mixed reji. IMAGING STUDIES: CT abdomen and pelvis showed a 3 mm left ureterovesical junction calculus with mild left hydroureteronephrosis. A 3 mm left renal superior pole nonobstructive calculus. IVP performed shows an unchanged 3 mm distal left ureteral stone resulting in mild left hydroureteronephrosis seen. Unremarkable bilateral collecting system and urinary bladder. HOSPITAL COURSE: A 58-year-old female, who came into the ED with complaints of left-sided flank pain. Imaging studies consistent with a left mild hydroureteronephrosis with a 3 mm left ureterovesical junction calculus as well as a 3 mm left renal superior pole nonobstructive calculus. The patient was admitted and started on IV antibiotics. Urology was consulted. The patient underwent status post cystoscopy with retrograde pyelogram with obstruction of the left ureteral stone with a left ureteral stent placement, performed on 08/01/2019, by Urology, Dr. Perez. The patient did well postprocedurally with no complaints. She was afebrile. Normotensive. She was cleared for discharge by Urology. She was advised to follow up with Urology in 7 to 10 days for possible stent removal. The patient's blood cultures were negative. Urine cultures were showing to be a contaminant with normal mixed reji. The patient was discharged on oral antibiotics as well as pain control. She was also discharged on Ditropan. On the day of discharge, vital signs were stable, labs reviewed and stable. The patient is seen and evaluated, and examined thoroughly on the day of discharge. No other complaints. The patient verbalized understanding and agrees to plan of care to follow up accordingly as an outpatient with primary care physician in one week and the urologist in 7 to 10 days. MEDICATIONS: See medication reconciliation form. DISPOSITION: Home. CONDITION: Stable. DIET: Heart healthy. In the event of any worsening symptoms, the patient was advised to come back to the ED for further evaluation. Discharge summary took greater than 35 minutes. MD CHANI Gonzalez/IVANA /[id number]
[2019-08-04 20:00] VITALS: BP 164/66
== END 2019-08-01 15:30 | disposition home or self-care (01) | DRG 660 ==
LOC: ER 21:25 → ERHOLD 07-31 01:16 → MED/SURG3 07-31 01:53
PROVIDERS: ADMIT Internal Medicine; ATTEND Internal Medicine
PROC: 0T778DZ Dilation of Left Ureter with Intraluminal Device, Via Natural or Artificial Opening Endoscopic (ICD-10-PCS; 2019-08-01)
PROC: BT1FZZZ Fluoroscopy of Left Kidney, Ureter and Bladder (ICD-10-PCS; principal; 2019-08-01 10:00)
DX: N13.1 Hydronephrosis with ureteral stricture, not elsewhere classified (principal); N20.2 Calculus of kidney with calculus of ureter; E78.5 Hyperlipidemia, unspecified; E66.01 Morbid (severe) obesity due to excess calories; Z68.33 Body mass index [BMI] 33.0-33.9, adult; M19.90 Unspecified osteoarthritis, unspecified site; G89.29 Other chronic pain; M54.9 Dorsalgia, unspecified; E66.9 Obesity, unspecified; Z11.59 Encounter for screening for other viral diseases
CPT/HCPCS: 36415; 74176; 74400; 74420; 80053; 81001; 82948; 85025; 87040; 87086; 87186; 87635; 88300; 96361; 99284; C1769; C2617; J0696; J1100; J1885; J2405; J7030; Q9967

== ENCOUNTER → 2019-10-19 | Outpatient (CLI) | payer BC ==
[~2019-10-19] MED LIST: ATORVASTATIN CA20 MG PO; MULTI-VITAMIN1 EACH
--- NOTE | 2019-10-19 10:55 | Diagnostic Imaging Report ---
EXAM: CT Abdomen and Pelvis WITHOUT intravenous contrast INDICATION: History of urinary calculus. Lower abdominal pain. COMPARISON: 07/30/2019 TECHNIQUE: Abdomen and pelvis were scanned utilizing a multidetector helical scanner from the lung base to the pubic symphysis without administration of IV contrast. Coronal and sagittal reformations were obtained. Routine technique was performed. IV CONTRAST: None ORAL CONTRAST: None COMPLICATIONS: None RADIATION DOSE: Total DLP: 513 mGy*cm Dose modulation, iterative reconstruction, and/or weight based adjustment of the mA/kV was utilized to reduce the radiation dose to as low as reasonably achievable. FINDINGS: LOWER THORAX: Normal. HEPATOBILIARY: No focal hepatic lesions. No biliary ductal dilatation. The gallbladder appears unremarkable. SPLEEN: No splenomegaly. PANCREAS: No focal masses or ductal dilatation. ADRENALS: No adrenal nodules. KIDNEYS/URETERS: No hydronephrosis, stones, or solid mass lesions. Previously identified left superior pole calculus and ureterovesical stone are no longer visualized. PELVIC ORGANS/BLADDER: Urinary bladder is mildly distended and unremarkable. Uterus and ovaries are unremarkable by noncontrast CT technique. PERITONEUM / RETROPERITONEUM: No free air or fluid. LYMPH NODES: No lymphadenopathy. VESSELS: Unremarkable. GI TRACT: Bowel loops are suboptimally evaluated without oral contrast. Stomach and portions of the colon are decompressed limiting evaluation. No surrounding inflammatory changes are noted. Negative for obstruction. BONES AND SOFT TISSUES: Negative for acute osseous abnormality. No suspicious lytic or blastic lesion is identified. Mild to moderate multilevel degenerative changes of the lower lumbar spine are noted. SI joints are patent. IMPRESSION: Previously identified left upper pole and left ureterovesicular junction stones are no longer visualized. No renal calculi are identified. Negative for hydronephrosis or perinephric fluid collection. Signed by: Alexys Millard MD on 10/19/2019 10:51 AM
== END ==
LOC: CT 09:43
PROVIDERS: ATTEND Urology
DX: R10.30 Lower abdominal pain, unspecified (principal); Z87.442 Personal history of urinary calculi
CPT/HCPCS: 74176

== ENCOUNTER → 2021-10-24 | Outpatient (CLI) | payer BC | LOC: RAD 10:42 | PROVIDERS: ATTEND Urology | DX: N20.0 Calculus of kidney (principal) | CPT/HCPCS: 74018 ==